=== PATIENT | female | born 2000 | race Caucasian/White ===

== ENCOUNTER 2020-01-18 18:23 | Emergency (ER) | payer BC, SELFPAY ==
[2020-01-18 18:46] VITALS: BP 123/75; PULSE 133; RESP 20; TEMP 38.1; O2SAT 100
--- NOTE | 2020-01-18 19:05 | ED.GENADULT ---
HPI - General Adult General Chief complaint: Skin/Abscess/Foreign Body Stated complaint: possible cyst Time Seen by Provider: 01/18/20 19:05 Source: patient and RN notes reviewed Mode of arrival: ambulatory Limitations: no limitations History of Present Illness HPI narrative: 19-year-old female presents with complaints of redness, tenderness, and swelling between vagina and rectum for the past 3 days. Sitting in bathtub and Ibuprofen (600mg), last this morning at approximately 09:00 with no relief. Area seem to increase throughout the day and decrease in size at night per Ernestina. Tender to touch. No drainage. History of skin abscess. No fever or chills. No abdominal pain, nausea, and vomiting. LMP 01/09/20-01/13/20. Remains active. The patient reports she have not been diagnosed with COVID-19. The patient reports she is not waiting for the results of a COVID-19 lab test. The patient reports she do not have fever, chills, weakness, fatigue, or myalgia. The patient reports she do not have a new or worsening cough or shortness of breath. Denies chest pain. The patient reports she do not have any rhinorrhea, congestion, sore throat, and diarrhea. Tolerating po intake well. Denies recent traveling. Denies concerns for COVID-19 or exposures been home with limited outdoor exposure except for essential household needs and return home. At this time, patient is not suspected of having COVID-19. Some parts of this dictation were generated by voice recognition software and may contain typographical and/or grammatical inaccuracies. Related Data Allergies Allergy/AdvReac Type Severity Reaction Status Date / Time Sulfa (Sulfonamide Allergy Unknown Verified 01/18/20 18:46 Antibiotics) Review of Systems Review of Systems: Narrative: CONSTITUTIONAL: Denies fever, chills, sweats. EYES: Denies visual changes, redness, discharge. ENT: Denies rhinorrhea, congestion, sore throat, otalgia. CARDIOVASCULAR: Denies chest pain, palpitations, edema. RESPIRATORY: Denies dyspnea, wheezing, cough. GASTROINTESTINAL: Denies abdominal pain, nausea, vomiting, diarrhea. GENITOURINARY: Denies dysuria, hematuria, abnormal discharge. SKIN: Denies rash or itching. Comomplains of redness, tenderness, and swelling between vagina and rectum. Denies drainage. MUSCULOSKELETAL: Denies acute back pain, joint pain, or myalgia. NEUROLOGIC: Denies numbness or focal weakness. PSYCHIATRIC: Denies anxiety or depression. All systems reviewed & are unremarkable except as noted in HPI and below. COUNT INCLUDES [facility] Past Medical History Medical History (Updated 01/23/20 @ 00:00 by Nika Levi) Abscess delivery delivered Surgical History Surgical History (Updated 01/18/20 @ 19:28 by MARIA ALEJANDRA Juarez) H/O section X1-2019 Family History Family History (Updated 01/18/20 @ 19:29 by MARIA ALEJANDRA Juarez) Father Hypertension Mother Alive and well Social History Social History (Updated 01/18/20 @ 19:30 by MARIA ALEJANDRA Juarez) Smoking status: Never smoker Second hand tobacco smoke exposure: No Substance use: never Living arrangements: with family Occupation/Education: unemployed Gender identity (if verbalized by the patient): Female Sexual Orientation (if Verbalized by the Patient): Straight or Heterosexual Comments At time of signature, agree with nurse past medical, surgical, social, and family history. There is relevant patient's past medical history pertinent to the presenting complaint, no relevant family history pertinent to the presenting complaint. Exam Narrative: Exam Narrative: GENERAL: This is a well-nourished, well-developed patient, in no apparent distress. Talking in full sentences without deficit and ambulate with slow steady gait without dyspnea. HEAD: normocephalic, atraumatic. EYES: PERRL. Sclera clear/white. Vision is grossly intact. NECK: Neck supple, non-tender without lymphadenopathy, masses or
== END 2020-01-18 19:32 | disposition home or self-care (01) ==
PROVIDERS: Emergency Provider Nurse Practitioner Family; PCP Family Medicine
DX: N76.4 Abscess of vulva (principal)
CPT/HCPCS: 99203; G0463

== ENCOUNTER 2022-11-18 16:58 | Emergency (ER) | payer OTHER, SELFPAY ==
[2022-11-18 17:15] VITALS: BP 105/75; PULSE 126; RESP 16; TEMP 37.7; O2SAT 99
[2022-11-18 17:16] VITALS: BP 105/75; PULSE 126; RESP 16; TEMP 37.7; O2SAT 99
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
[2022-11-18 17:56] VITALS: PULSE 102
== END 2022-11-18 17:56 | disposition home or self-care (01) ==
PROVIDERS: Emergency Provider Nurse Practitioner
DX: M54.2 Cervicalgia (principal); M25.511 Pain in right shoulder
CPT/HCPCS: 99213; G0463

== ENCOUNTER 2023-01-16 11:26 | Emergency (ER) | payer MEDICAID, SELFPAY ==
[2023-01-16 11:37] VITALS: BP 135/90; PULSE 96; RESP 16; TEMP 37.7; O2SAT 100
[2023-01-16 11:39] VITALS: BP 135/90; PULSE 96; RESP 16; TEMP 37.7; O2SAT 100
--- NOTE | 2023-01-16 11:47 | ED.NAVMDI ---
HPI - Nausea/Vomiting/Diarrhea General Chief complaint: Nausea/Vomiting/Diarrhea Stated complaint: diarrhea,fever Time Seen by Provider: 01/16/23 11:47 Source: patient Mode of arrival: ambulatory Limitations: no limitations History of Present Illness HPI Narrative: 22 yo F presents with c/o diarrhea starting a 2am. States she has had approx. 30 episodes of diarrhea. going every 15 minutes . Denies blood in stool. No episodes of diarrhea while at [facility]. Pt well appearing. Ate gas station pizza, mcdonalds and tacos from a baby shower yesterday. Unsure if related to food she ate or viral. Reports mild bodyaches and low grade temp. approx. 6 wks . c/o imtermittent epigastric cramping and gurgling . Is able to eat and drink today. reports burning with urination but states i always have this . has painter airbrush appt in 2 wks. All systems reviewed and negative except as noted above. Related Data Home Medications Medication Instructions Recorded Confirmed [place] 01/16/23 Allergies Allergy/AdvReac Type Severity Reaction Status Date / Time Sulfa (Sulfonamide Allergy Rash Verified 01/16/23 11:38 Antibiotics) Review of Systems Review of Systems: CONSTITUTIONAL: Denies fever, chills, or sweats. EYES: Denies visual changes, redness, or discharge. ENT: Denies rhinorrhea, congestion, sore throat, or otalgia. CARDIOVASCULAR: Denies chest pain, palpitations, or edema. RESPIRATORY: Denies cough or dyspnea. GASTROINTESTINAL: Reports epigastric pain, diarrhea. Denies nausea, vomiting. GENITOURINARY: Denies dysuria or hematuria. SKIN: Denies rash or itching. MUSCULOSKELETAL: Denies back pain, joint pain, or myalgia. NEUROLOGIC: Denies headache, numbness, or weakness. PSYCHIATRIC: Denies anxiety or depression. All other systems reviewed are negative, except as documented in HPI. [facility] Past Medical History Medical History (Updated 01/16/23 @ 12:14 by Carlie Almanza NP) Abscess delivery delivered Surgical History Surgical History (Updated 01/18/20 @ 19:28 by MARIA ALEJANDRA Juarez) H/O section X1-2019 Family History Family History (Updated 01/18/20 @ 19:29 by MARIA ALEJANDRA Juarez) Father Hypertension Mother Alive and well Social History Social History (Updated 01/18/20 @ 19:30 by MARIA ALEJANDRA Juarez) Smoking status: Never smoker Second hand tobacco smoke exposure: No Substance use: never Living arrangements: with family Occupation/Education: unemployed Gender identity (if verbalized by the patient): Female Sexual Orientation (if Verbalized by the Patient): Straight or Heterosexual Comments At time of signature, agree with nursing past medical, surgical, social and family history. There is no relevant family history pertinent to the presenting complaint. Exam Narrative: GENERAL: This is a well-nourished, well-developed patient, in no apparent distress. HEAD: normocephalic, atraumatic. EYES: PERRL. Sclera clear/white. Vision is grossly intact. EARS: External ears normal NOSE: External nose normal NECK: Neck supple, non-tender without lymphadenopathy, masses or thyromegaly. CARDIOVASCULAR: Regular rate and rhythm without murmurs, gallops, or rubs. RESPIRATORY: Clear to auscultation. Breath sounds equal bilaterally. No wheezes, rales, or rhonchi. GASTROINTESTINAL: Abdomen soft, non-tender, nondistended. Bowel sounds are active. No hepato-splenomegaly, or palpable masses. No guarding. digestive noises heard/felt on palpation of epigastric palpation. SKIN: warm, Dry, intact with no suspicious lesions or rash, good texture and turgor. NEURO: awake, alert, and oriented to person, place and time. There were no obvious focal neurologic abnormalities. EXTREMITIES: No joint tenderness, effusion, or edema noted. Course Course Level of Care: [facility] Visit Vital Signs Vital signs: Vital Signs Temperature 37.
== END 2023-01-16 12:17 | disposition home or self-care (01) ==
PROVIDERS: Emergency Provider Nurse Practitioner Family; PCP Emergency Medicine
DX: R19.7 Diarrhea, unspecified (principal)
CPT/HCPCS: 81003; 87086; 99213; G0463

== ENCOUNTER 2023-01-16 13:10 | Emergency (ER) | payer SELFPAY ==
[2023-01-16 13:31] VITALS: BP 126/70; PULSE 100; RESP 16; TEMP 37.1; O2SAT 100
--- NOTE | 2023-01-16 15:18 | PC.NURSE ---
pt to supervisor front, states i feel just fine, and i have an ultrasound appointment scheduled for . i'm thirsty and hungry, and i'm just ready to go home. I'll come back if i feel bad again. pt advised to return if symptoms return or get worse. pt left out of department at [phone]
== END 2023-01-16 16:15 | disposition left against medical advice (07) ==
DX: O26.891 Other specified pregnancy related conditions, first trimester (principal); R19.7 Diarrhea, unspecified
CPT/HCPCS: 99199

== ENCOUNTER 2023-05-19 08:02 | Emergency (ER) | payer OTHER, SELFPAY ==
[2023-05-19 08:11] VITALS: BP 128/77; PULSE 124; RESP 18; TEMP 37.4; O2SAT 99
--- NOTE | 2023-05-19 08:31 | ED.URI ---
HPI - URI/Sore Throat General Chief Complaint: Fever Stated Complaint: Fever/Nausea Time Seen by Provider: 05/19/23 08:22 Source: patient and RN notes reviewed Mode of arrival: ambulatory Limitations: no limitations History of Present Illness HPI Narrative: Patient presents today complaining of fever up to 99.9, headache, nausea, fatigue, sore throat, congestion and rhinorrhea. Symptoms began last evening. Denies shortness of breath, chest pain, abdominal pain, vaginal bleeding or discharge. She currently rates her pain 6/10 and has been taking Tylenol with some relief. She is currently 23 weeks and is cared for at [facility]. She was briefly exposed to COVID 19 yesterday by her boss. Related Data Home Medications Medication Instructions Recorded Confirmed spring 01/16/23 Allergies Allergy/AdvReac Type Severity Reaction Status Date / Time Sulfa (Sulfonamide Allergy Rash Verified 05/19/23 08:11 Antibiotics) Review of Systems Review of Systems: CONSTITUTIONAL: Denies body aches, chills, or sweats.+ fever, fatigue EYES: Denies visual changes, redness, or discharge. ENT: Denies otalgia.+ sore throat, congestion, rhinorrhea CARDIOVASCULAR: Denies chest pain, palpitations, or edema. RESPIRATORY: Denies dyspnea.+ cough GASTROINTESTINAL: Denies abdominal pain, vomiting, or diarrhea.+ nausea GENITOURINARY: Denies dysuria or hematuria. SKIN: Denies rash, itching, or wounds. MUSCULOSKELETAL: Denies back pain, joint pain, or myalgia. NEUROLOGIC: Denies numbness, tingling, or weakness.+ headache PSYCH: Denies depression or anxiety. [facility] Past Medical History Medical History Abscess delivery delivered Surgical History Surgical History H/O section X1-2019 Family History Family History Father Hypertension Mother Alive and well Social History Social History Smoking status: Never smoker Second hand tobacco smoke exposure: No Substance use: never Living arrangements: with family Occupation/Education: unemployed Gender identity (if verbalized by the patient): Female Sexual Orientation (if Verbalized by the Patient): Straight or Heterosexual Comments At time of signature, I have reviewed and agree with nursing past medical, surgical, social and family history unless otherwise noted. Please see nursing chart for further information. There is no relevant family history pertinent to the presenting complaint Exam Narrative: GENERAL: Mildly ill-appearing, well-nourished, and in no acute distress. HEAD: Normocephalic, atraumatic. EYES: EOMI. No redness or drainage. Conjunctivae normal. ENT: Mucous membranes pink and moist. Nares congestive. No rhinorrhea. TMs normal bilaterally. Throat erythematous and mildly edematous. No exudate. Uvula midline. NECK: Normal AROM. Supple. No lymphadenopathy. CHEST: No respiratory distress. Clear to auscultation. HEART: Regular rhythm. + tachycardia. No murmur appreciated. Normal peripheral pulses. ABDOMEN: Soft, nontender, gravid abdomen, normal active bowel sounds. EXTREMITIES: Normal range of motion. No edema. SKIN: Warm, dry, no rash. Capillary refill normal. Normal skin turgor. NEURO: No focal deficits. Alert and oriented x3. Gait steady. PSYCH: Normal affect. No signs of depression or anxiety. Course Course Level of Care: Express [facility] Visit Vital Signs Vital signs: Vital Signs Temperature 99.4 F 05/19/23 08:11 Pulse Rate 124 H 05/19/23 08:11 Respiratory Rate 18 05/19/23 08:11 Blood Pressure 128/77 05/19/23 08:11 Pulse Oximetry 99 05/19/23 08:11 Oxygen Delivery Room Air 05/19/23 08:11 Temperature 99.4 F 05/19
== END 2023-05-19 08:47 | disposition home or self-care (01) ==
PROVIDERS: Emergency Provider Nurse Practitioner
DX: O99.512 Diseases of the respiratory system complicating pregnancy, second trimester (principal); Z3A.23 23 weeks gestation of pregnancy; B34.9 Viral infection, unspecified; Z20.822 Contact with and (suspected) exposure to COVID-19
CPT/HCPCS: 87081; 87426; 87880; 99213; C9803; G0463

== ENCOUNTER 2023-06-06 10:53 | Emergency (ER) | payer OTHER, SELFPAY ==
[2023-06-06 10:59] VITALS: BP 112/65; PULSE 106; RESP 16; TEMP 36.2; O2SAT 99
[2023-06-06 11:00] VITALS: BP 112/65; PULSE 106; RESP 16; TEMP 36.2; O2SAT 99
--- NOTE | 2023-06-06 11:14 | ED.URI ---
HPI - URI/Sore Throat General Chief Complaint: Upper Respiratory Infection Stated Complaint: Sore Throat History of Present Illness HPI Narrative: 22 y/o female presented for c/o nasal congestion, cough, and sore throat. onset yesterday. Endorses pain radiates to the ears with swallow. also reports cough is productive of yellow mucus. Denies difficulty maintaining secretions or decreased appetite. Denies nausea, vomiting, diarrhea, fevers or chills. Took cough drops and throat spray for symptoms. Denies known sick contacts. Related Data Home Medications Medication Instructions Recorded Confirmed No Home Medications 06/06/23 06/06/23 Allergies Allergy/AdvReac Type Severity Reaction Status Date / Time Sulfa (Sulfonamide Allergy Rash Verified 06/06/23 10:59 Antibiotics) Review of Systems Review of Systems: CONSTITUTIONAL: Denies body aches, fever, chills, or sweats. EYES: Denies visual changes, redness, or discharge. ENT: reports rhinorrhea, sore throat, otalgia. CARDIOVASCULAR: Denies chest pain, palpitations, or edema. RESPIRATORY: Denies dyspnea. GASTROINTESTINAL: Denies abdominal pain, nausea, vomiting, or diarrhea. SKIN: Denies rash, itching, or wounds. MUSCULOSKELETAL: Denies back pain, joint pain, or myalgia. NEUROLOGIC: Denies headache PMFSH Past Medical History Medical History Abscess delivery delivered Surgical History Surgical History H/O section X1-2019 Family History Family History Father Hypertension Mother Alive and well Social History Social History Smoking status: Never smoker Second hand tobacco smoke exposure: No Substance use: never Living arrangements: with family Occupation/Education: unemployed Gender identity (if verbalized by the patient): Female Sexual Orientation (if Verbalized by the Patient): Straight or Heterosexual Exam Narrative: GENERAL: well-appearing, no acute distress. EYES: conjunctivae clear ENT: Mucous membranes moist. TMs pearly heni with normal light reflex bilaterally; no tragal tenderness. Oropharynx not erythematous without lesions. Tonsils enlarged 1+ without exudate. No drooling, no hoarseness, no trismus, uvula midline. No tripod positioning, hot potato voice, or soft palate swelling. NECK: Supple. No lymphadenopathy CHEST: Clear to auscultation, breath sounds equal. No respiratory distress, speaks in full sentences. HEART: Regular rate and rhythm. No murmur heard. ABD: Gravid SKIN: Warm, dry, no rash. NEURO: Alert and oriented x3. Course Course Emergency Course: Patient is aware of diagnosis, understands and agrees to treatment plan. Anticipatory guidance given. Patient agrees to follow-up as directed and is aware of reasons to seek care at the emergency department. Portions of this record may have been created with voice recognition software Level of Care: [facility] Visit Vital Signs Vital signs: Vital Signs Temperature 97.2 F L 06/06/23 10:59 Pulse Rate 106 H 06/06/23 10:59 Respiratory Rate 16 06/06/23 10:59 Blood Pressure 112/65 06/06/23 10:59 Pulse Oximetry 99 06/06/23 10:59 Oxygen Delivery Room Air 06/06/23 10:59 Temperature 97.2 F L 06/06/23 11:00 Pulse Rate 106 H 06/06/23 11:00 Respiratory Rate 16 06/06/23 11:00 Blood Pressure 112/65 06/06/23 11:00 Pulse Oximetry 99 06/06/23 11:00 Oxygen Delivery Room Air 06/06/23 11:00 MDM - URI/Sore Throat MDM Narrative Medical decision making narrative: Negative strep result reviewed with pt. Advise supportive treatments. Patient is appropriate for outpatient treatment and follow-up. Differential Diagnosis Differential diagnosis: Likely upper respirator
== END 2023-06-06 11:23 | disposition home or self-care (01) ==
PROVIDERS: Emergency Provider Nurse Practitioner Family
DX: J06.9 Acute upper respiratory infection, unspecified (principal)
CPT/HCPCS: 87081; 87880; 99213; G0463

== ENCOUNTER 2024-08-08 14:54 | Emergency (ER) | payer OTHER, SELFPAY ==
--- NOTE | 2024-08-08 15:02 | ED_ITS ---
HPI - Female Genitourinary General Chief complaint: Urogenital-Female Stated complaint: Vaginal Problems Time Seen by Provider: 08/08/24 14:58 Source: patient Mode of arrival: ambulatory Limitations: no limitations History of Present Illness HPI Narrative: Patient is a 23-year-old female who presents with vaginal and perianal itching. Denies any chance of STI. Is concern for used infection. States every time she goes to the bathroom in his diarrhea due to having IBS. Does report having redness and inflammation to skin. Denies any burning with urination, urgency, frequency, low back pain, fever, chills, nausea, vomiting, diarrhea. Related Data Allergies Allergy/AdvReac Type Severity Reaction Status Date / Time Sulfa (Sulfonamide Allergy Rash Verified 06/06/23 10:59 Antibiotics) Review of Systems Review of Systems: All systems reviewed & are unremarkable except as noted in HPI and below Constitutional: Constitutional: Denies body ache(s), Denies chills, Denies fatigue, Denies fever(s), Denies headache(s), Denies malaise and Denies weakness Eyes: Eyes: Denies blurry vision, Denies irritation and Denies loss of vision ENT: Denies otalgia, Denies headache(s), Denies nasal discharge, Denies sinus pain and Denies sore throat Cardiovascular: Cardiovascular: Denies chest pain, Denies irregular heart rhythm and Denies dyspnea Respiratory: Respiratory: Denies dyspnea Gastrointestinal: Gastrointestinal: Denies abdominal pain, Denies melena, Denies hematochezia, Denies diarrhea, Denies nausea and Denies vomiting Genitourinary: Genitourinary: Reports vaginal pruritus Musculoskeletal: Musculoskeletal: Denies back pain, Denies myalgias and Denies arthralgias Integumentary/Breasts: Skin/Breast: Denies pruritus and Denies rash Neurologic: Denies headache(s), Denies loss of vision and Denies weakness Psychiatric: Psychiatric: Reports no additional psychiatric complaints Endocrine: Endocrine: Denies fatigue PMFSH Past Medical History Medical History Abscess delivery delivered Surgical History Surgical History H/O section X1-2019 Family History Family History Father Hypertension Mother Alive and well Social History Social History Smoking status: Never smoker Second hand tobacco smoke exposure: No Substance use: never Living arrangements: with family Occupation/Education: unemployed Gender identity (if verbalized by the patient): Female Sexual Orientation (if Verbalized by the Patient): Straight or Heterosexual Comments At time of signature, agree with nursing past medical, surgical, social and family history. There is no relevant family history pertinent to the presenting complaint. Exam Const: General: cooperative, healthy appearing, comfortable, no acute distress and well nourished Nutritional Appearance: well nourished Orientation/consciousness: patient oriented x3 Limitations: no limitations HENMT: Head: normal to inspection, normocephalic and atraumatic Ears: hearing grossly normal bilaterally and external ears normal Face/Nose/Sinus: Normal external nose present, normal facial exam and face symmetric Face and sinus: normal facial exam and face symmetric Mouth: Yes lip normal Eyes: General: appearance normal, both eyes and all related structures Alignment and Position: alignment normal and position normal Periorbital: periorbital findings normal Eyelids: eyelids normal Pupils: Equal, round and reactive pupils present EOM: EOMs intact bilaterally Neck: Neck: normal visual inspection, full ROM and supple Chest: Chest palpation & inspection: normal inspection of the chest Resp: Effort & Inspection: normal respiratory effort and able to speak in complete sentences Auscultation: clear to auscultation bilaterally Cardio: Rate: regular rate Rhythm: regular rhythm Heart sounds: S1 normal heart sound present and S2 normal heart sound present GI: Inspection: normal to inspection : General: Yes no CVA tenderness Other: Exam deferred by patient Skin: General skin exam: normal color and no rashes or lesions noted Neuro: General: patient oriented x3 and moves all extremities Cranial nerves: Yes Equal, round and reactive pupils present Speech: normal speech Gait exam (Neuro): Normal gait present Extrem: General: normal to inspection, full ROM and no edema Psych: Appearance: grossly normal and well kempt Mental Status: mental status grossly normal Speech and movement: Normal speech and movement present Affect: normal affect Attitude: cooperative Thought process: Normal thought process present Course Course Emergency Course: Patient is aware of diagnosis, understands and agrees to treatment plan. Anticipatory guidance given. Patient agrees to follow-up as directed and is aware of reasons to seek care at the emergency department. Portions of this record may have been created with voice recognition software Level of Care: Express Care Visit Vital Signs Vital signs: Vital Signs Temperature 36.6 C 08/08/24 15:15 Pulse Rate 80 08/08/24 15:15 Respiratory Rate 15 08/08/24 15:15 Blood Pressure 106/64 08/08/24 15:15 Pulse Oximetry 100 08/08/24 15:15 Oxygen Delivery Room Air 08/08/24 15:15 Temperature 36.6 C 08/08/24 15:15 Pulse Rate 80 08/08/24 15:15 Respiratory Rate 15 08/08/24 15:15 Blood Pressure 106/64 08/08/24 15:15 Pulse Oximetry 100 08/08/24 15:15 Oxygen Delivery Room Air 08/08/24 15:15 Reviewed MDM - Female Genitourinary MDM Narrative Medical decision making narrative: Pt well hydrated appearing, in no respiratory distress, hemodynamically stable. Recommend supportive care. The patient is stable at time of discharge the clinical impression was discussed and the patient was given the opportunity to ask questions, which were addressed as completely as possible given the information available at present. Anticipatory guidance and return to care precautions were discussed and the importance of primary care follow-up was stressed and encouraged. The patient voiced understanding of the plan, indications to return, and the need for follow-up. Exam findings show no acute concerns or changes Patient is appropriate for outpatient treatment and follow-up. Differential Diagnosis Differential diagnosis: Likely urinary tract infection, bacterial vaginosis, cervicitis, vaginitis and other (Vaginal yeast infection) Medical Records Attestation: I reviewed the patient's medical records. Lab Data Attestation: I reviewed the patient's lab results. Labs: Lab Results 08/08/24 Range/Units 15:17 POC Urine Color Yellow POC Urine Clarity Clear POC Urine pH 6.0 POC Ur Specif [place] 1.030 POC Urine Protein Negative (Negative) POC Ur Glucose (UA) Negative (Negative) POC Urine Ketones Negative (Negative) POC Urine Blood Negative (Negative) POC Urine Nitrite Negative (Negative) POC Urine Bilirubin Negative (Negative) POC Urine Urobilinogen 0.2 POC U Leukocyte Esteras Negative (Negative) Discharge Plan Discharge Clinical Impression: Vaginal yeast infection Patient Disposition: Home, Self-Care Condition: Stable Instructions: Yeast Infection (ED) Additional Instructions: Take 1 pill today and in 3 days take additional pill. Do not use any scented soaps, tampons or pads. Make sure to always urinate after sex. Use non scented, non flavored condoms. Do not sit and bath with scented soaps or oils. Where cotton underwear and change underwear after exercise. Patient Language: Stateless Prescriptions: New fluconazole 150 mg tablet 150 mg PO ONCE Qty: 2 0RF Rx Instructions: as a single dose after antibiotics are complete. If symptoms persist, take second dose 3 days later. Follow-up/Referrals: PHYSICIAN,MONUMENT[facility] [Primary Care Provider] - Eliu Mcleod MD [Physician] - 3 Days (Establish care for) Stand Alone Forms: Work/School Release IP Time of Disposition: 15:39
[2024-08-08 15:15] VITALS: BP 106/64; PULSE 80; RESP 15; TEMP 36.6; O2SAT 100
[2024-08-08 15:19] LABS: EDUAAPPEAR Clear; EDUABILI Negative (Negative); EDUABLOOD Negative (Negative); EDUACOLOR1 Yellow; EDUAGLUCOSE Negative (Negative); EDUAKETONE Negative (Negative); EDUALEUKO Negative (Negative); EDUANITRATE Negative (Negative); EDUAPROTEIN Negative (Negative); EDUAUROBILI 0.2
== END 2024-08-08 15:45 | disposition home or self-care (01) ==
PROVIDERS: Emergency Provider Nurse Practitioner Family
DX: B37.31 Acute candidiasis of vulva and vagina (principal)
CPT/HCPCS: 81003; 99213; G0463

== ENCOUNTER 2024-08-15 02:46 | Emergency (ER) | payer OTHER, SELFPAY ==
[2024-08-15 02:50] VITALS: BP 119/69; PULSE 101; RESP 16; TEMP 36.8; O2SAT 99
--- OUTSIDE RECORDS SUMMARY | 2024-08-15 02:50 | XMS_ITS | Clinical Summary ---
Author Organization [facility] [id number] [facility] Address [address] [facility] [place] [address] Care Team Providers Care Tobacco Sizer Name Role Phone No, Physician Primary Care Provider Allergies Active Allergy Reactions Criticality Noted Date Comments Sulfa (Sulfonamide Antibiotics) Rash Medium 04/20 Medications vit 15-[id number]-dh a 27mg iron- 800 mcg-250 mg capsule Take by mouth Active acetaminophen (TYLENOL) 325 mg tablet Take 2 tablets (650 mg total) by mouth every 6 (six) hours as needed for pain 60 tablet 4 Active Additional Information Patient not taking.Reported on 10/12/2023 ibuprofen (ADVIL,MOTRIN) 600 mg tabletIndication s:Cramps Take 1 tablet (600 mg total) by mouth every 6 (six) hours as needed for pain 60 tablet 4 Active Additional Information Patient not taking.Reported on 10/12/2023 betamethasone dipropionate (DIPROSONE) 0.05 % ointment Apply topically 3 (three) times a day 45 g 4 Active Additional Information Patient not taking.Reported on 01/25/2024 mupirocin (BACTROBAN) 2 % ointment Apply topically 3 (three) times a day 30 g 1 4 Active miconazole 2 % cream Apply topically 2 (two) times a day Apply to affect area of nipple BID. 28.35 g 4 Active fluconazole (DIFLUCAN) 150 mg tablet One tablet PO q 3 days for 3 total doses. 3 tablet 4 Active clotrimazole 1 % cream Apply to affected area 2 times daily 15 g 5 Active fluconazole (DIFLUCAN) 150 mg tablet Take 1 tablet (150 mg total) by mouth as needed (If needed, take on 08/12. If additional dose as needed, take 1 more dose on 08/15) 2 tablet 5 Active metroNIDAZOLE (FLAGYL) 500 mg tablet Take 1 tablet (500 mg total) by mouth 2 (two) times a day for 7 days 13 tablet 5 08/16/19 25 Active Active Problems Problem Noted Date Diagnosed Date 38 weeks gestation of 09/02/2023 History of 08/30/2023 Sterilization 08/30/2023 Supervision of other normal , antepartu m 03/07/2023 BMI less than 19,adult 08/19/2020 Assessment & Plan (02/01/2021 8:11 AM CDT): Weight/BMI is in healthy range. Continue healthy lifestyle to maintain. Assessment & Plan (01/18/2021 7:58 AM CDT): Weight/BMI is in healthy range. Continue healthy lifestyle to maintain. Assessment & Plan (09/17/2020 10:46 AM CDT): Weight/BMI is in healthy range. Continue healthy lifestyle to maintain. Assessment & Plan (08/19/2020 1:28 PM LOCK INSTALLER): Weight/BMI is in healthy range. Continue healthy lifestyle to maintain. Irregular menses 08/19/2020 Assessment & Plan (02/01/2021 9:17 AM CDT): Continue with apri at this time Assessment & Plan (08/19/2020 3:18 PM LOCK INSTALLER): Patient advised to not smoke as smoking when taking ocp can increase risk for blood clots. Patient advised to take ocp at same time each day and start ocp the day after menses finishes. Patient reminded to use back up prevention the first two months after starting ocp. Patient reminded that ocp does not prevent against STDs. Patient reminded that if taking other medications, such as antibiotics or medications for anxiety or depression, could interact with ocp and increase risk for . Will also evaluate thyroid - will notify of results as available Episode of recurrent major depressive disorder 0 08/19/2020 Assessment & Plan (02/01/2021 9:17 AM CDT): Stable, continue meds same at this time Assessment & Plan (09/17/2020 11:36 AM CDT): Continue medication same at this time. Encouraged utilizing support system, monitoring for obtrusive/anxious thoughts and refuting to prevent overthinking. Reminded her not to stop zoloft abruptly. Assessment & Plan (08/19/2020 3:19 PM LOCK INSTALLER): Will start on zoloft every day. She makes pact to report to er if having s/h ideations. Resolved Problems Problem Noted Date Diagnosed Date Resolved Date (vaginal after ) 09/03/2023 01/25/2024 Overview (09/04/2023): 09/03/2023, PPD #1 s/p (Gaurav) # ID: Afebrile. No signs/symptoms of infection. # Heme: EBL 200 mL. No symptoms acute blood loss anemia. # CV/Pulm: Vital signs stable, within normal limits. # GI/: Tolerating PO. Voiding spontaneously. # Pain: Controlled with motrin/tylenol. # MOC: Planning tubal ligation, patient NPO for procedure this AM . # MOF: . # Post DVT prophylaxis: SCDs # Disposition: Continue routine care. 09/04/2023 PPD #2 (CZ) VSS, afebrile O+, Rubella Immune Hgb: 11.7>10.8 QBL 205 Ambulating, voiding, and tolerating PO, Lochia WNL Normal exam MOF: Breast MOC: Tubal VTE: frequent ambulation Dispo: Discharge teaching provided including PPD/PPA, pre-e, and bleeding/clotting precautions. Follow-up in [address] Nolasco PROM (premature rupture of membranes) 09/02/2023 01/25/2024 Overview (09/02/2023): 09/02/2023, 0930 Gaurav --patient presented to [facility] with complaints of LOF since 0600 am. ROM plus positive. --cervix 2/60/-2 on my exam --prior LTCS x 1 for arrest at 6 cm, currently desiring attempt at TOLAC. Aware of risk of rupture <1%. --cook catheter placed with 80 mL of fluid in uterine balloon and placed on traction. Will start OT. --FWB reassuring --plans epidural when uncomfortable. --O+/I/-/-, HIV and RPR NR --H/H 11.7/33.9, plts 210K (09/01) --GBS neg --contraception: desires pp tubal post delivery or via C/S if requiring. 09/02/2023, 1217 pm, Gaurav --patient more comfortable, recently got epidural --CC out, bloody show present. --cervix very soft and stretchy, 6/60/-2 --OT at 4 mU/min --fetus overall reassuring, Cat 2 due to occasional variables. 09/02/2023, 1414, Gaurav --patient needing re-bolusing of epidural, was getting uncomfortable. --cervix 680/-1 --IUPC placed for OT titration --fetus reassuring 09/02/2023, 1999Gaurav --cervix now C/+2 --recently received epidural re-dose --fetus overall reassuring --will plan to start pushing soon Unwanted fertility 09/02/2023 Physical exam, annual 01/18/20212022 Assessment & Plan (01/18/2021 8:50 AM CDT): Patient advised to call in 7 days if she has not been notified of PAP results. Patient reminded that she may spot blood vaginally and mildly cramp after this procedure. Patient advised to avoid douching, vaginal medications, and intercourse for 24h prior to her annual PAP. Nipple discharge 01/18/2021 03/30/2022 Assessment & Plan (02/01/2021 9:17 AM CDT): Will refer to endo and breast specialist for further evaluation and treatment Assessment & Plan (01/18/2021 8:50 AM CDT): Will evaluate further with labs Encounter to establish care 08/19/2020 05/10/2021 Assessment & Plan (08/19/2020 3:18 PM LOCK INSTALLER): Retrieve records from previous pcp Will make next appt a well woman exam control counseling 08/19/2020 Assessment & Plan (08/19/2020 3:18 PM LOCK INSTALLER): Patient advised to not smoke as smoking when taking ocp can increase risk for blood clots. Patient advised to take ocp at same time each day and start ocp the day after menses finishes. Patient reminded to use back up prevention the first two months after starting ocp. Patient reminded that ocp does not prevent against STDs. Patient reminded that if taking other medications, such as antibiotics or medications for anxiety or depression, could interact with ocp and increase risk for . delivery delivered 12/12/2018 03/30/2022 Overview (12/15/2018): # ID: Diagnosed with Chorioamnionitis in labor. S/p 24hr antibiotics (amp, gent and clinda). Afebrile since. Fundus non-tender. Incision C/D/I beneath dermabond. CTM closely # Heme: EBL 900 mL. Pre-Op Hgb 9.8->10.4. Tachycardic yesterday, improved to 80's-90s overnight. #CV/Pulm: Diagnosed with gHTN in setting of multiple mild range blood pressures after delivery. BPs within normal to mild range yesterday. CMP significant for Cr 0.88. Patient remains asymptomatic today. Will plan for one week BP check. # GI/: Tolerating PO. Voiding spontaneously. # Pain: Controlled with above regimen. # Edema: Swelling continues to decrease. Pt ambulating well. # Post DVT prophylaxis: Patient has the following moderate risk factors: None. Her post prophylaxis plan is SCDs and early ambulation # MOC: Desires IUD at visit # MOF: Formula feeding # Disposition: Continue routine postoperative care Encounter for elective induction of labor 12/09/2018 05/10/2021 Overview (12/11/2018): 1. Elective Induction of Labor: Consents signed and placed in chart. Induction of labor with low dose OT. S/p CC. SVE unchanged for several hours. Ruba regularly q1-2 min. OT kept at 16 mU/min for tachysystole. FHT cat I. Just placed IUPC in order to further assess strength of contractions, allow for further upward titration of OT 2. Chorioamnionitis: On Amp/gent. Temp downtrended from 100.4 to 99.6. tachycardia resolved. 3. Elevated BP x 1: UPC 0.14, CBC/CMP wnl on 12/05. Admission labs: UPC 0.27, CBC/CMP wnl. BP normal, CTM. 4. FWB: Continuous monitoring. tracing category I after 5. ID: HIV negative. GBS negative. Membrane Status: intact 6. Indications for UDS: none 7. MOF: Undecided on feeding method. 8. MOC: Mirena to be placed at 6 weeks 9. Pain management: Epidural placed. 10. Post DVT prophylaxis: Patient has the following moderate risk factors: None. Her post prophylaxis plan is SCDs and early ambulation Elevated BP without diagnosis of hypertension 12/07/1903/30/2022 High blood pressure affectin g in third trimester, antepartum 12/05/2018 03/30/2022 Overview (12/05/2018): - [facility] VISIT 12/05/2018: elevated BP in clinic - without neuro symptoms - preE labs unremarkable - VSS - reactive NST - patient for IOL on Monday - preE precautions given - DW Dr. Stone Uterine size-date discrepanc y in third trimester 08/29/2018 03/30/2022 Overview (09/26/2018): Growth US ordered for ~28 weeks. 09/19/18: EFW 1,012g 13%, vtx, nl BENY. OB US summary 07/26/2018 03/30/2022 Overview (07/26/2018): 07/25/18 diana US: EFW 281g 16%, ant placenta, no previa. Nl BENY, nl anatomy, 3vc, nl insertion. Supervision of normal first teen 05/16/2018 03/30/2022 Overview (11/19/2018): Initial Labs: Lab Results Component Value Date ABORH O Positive 05/29/2018 IDCOOMB Negative 05/29/2018 [id number] Nonreactive 09/28/2018 LABRPR Nonreactive 05/29/2018 RUBELIGG Positive (A) 05/29/2018 HEPBSAG Nonreactive 05/29/2018 Lab Results Component Value Date WBC 9.1 09/28/2018 HGB 11.5 (L) 09/28/2018 HCT 35.4 (L) 09/28/2018 MCV 98.9 (H) 09/28/2018 LABPLAT 224 09/28/2018 Midtrimester Labs Lab Results Component Value Date [id number] 09/28/2018 Lab Results Component Value Date HGB 11.5 (L) 09/28/2018 LABPLAT 224 09/28/2018 GBS: Lab Results Component Value Date MICROBIOLOGY Final Report: Negative 11/16/2018 Aneuploidy screening: low risk XY NIPT. rgs In parenting classes at school. Will graduate HS Jun 2018. Tasia Ackerman 12/09 @ 8pm if no spontaneous labor prior Sprain of ankle 03/29/2011 03/04/2018 Encounters Date Type Department Care Team Description 08/09/2024 11:45 AM LOCK INSTALLER - 08/09/2024 1:58 PM [facility] Emergency [facility] Emergency Department [address] [place] [id number] Bacterial vaginosis (Primary Dx); Rash Discharge Disposition: Discharge to home or self care from Last 3 Months Immunizations Immunization Administration Dates Next Due HPV, Quadrivalent 02/24/2017,03/03/2015 Influenza, Quadrivalent, Spl it, Preservative Free, Intramuscular 05/29/2018 Influenza, Unspecified 08/19/2020(Deferr ed: Patient Refused),03/26/2020(Deferred: Patient Refused) Meningococcal MCV4P (Menactra) 02/24/2017 Tdap 06/29/2023,09/28/2018 Varicella 02/24/2017 Surgical History Surgery Date Site/Laterality Comments SECTION Medical History Medical History Date Comments Depression no meds past 2 y ears Anxiety Family History Medical History Relation Name Comments Hypertension Father Lung cancer Maternal Grandfather Cancer Maternal Grandmother Stroke Paternal Grandfather No Known Problems Sister 2 No Known Problems Son Breast cancer Neg Hx Colon cancer Neg Hx Ovarian cancer Neg Hx Uterine cancer Neg Hx Relation Name Status Comments Father Alive Maternal Grandfather Maternal Grandmother Mother Alive Paternal Grandfather Sister 2 Alive Son Alive Social History Tobacco Use Types Packs/Day Years Used Date Smoking Tobacco: Never Smokeless Tobacco: Never Tobacco Cessation:Counseling Given: Not Answered Alcohol Use Standard Drinks/Week Comments Not Currently 0 (1 standard drink = 0.6 oz pur e alcohol) AUDIT-C Answer Date Recorded Frequency of Alcohol Consumption Not on file 03/30/2022 Average Number of Drinks Not on file 022 Q3: How often do you have si x or more drinks on one occasion? Never 03/30/2022 PHQ-2 Answer Date Recorded PHQ-2 Total Score (If total score is 3 or more points, staff should administer the PHQ-9) 1 03/30/2022 [place] Depression Scale Answer Date Recorded [place] Depression Scale Total 5 10/12/2023 The thought of harming myself has occurred to me . Never 10/12/2023 Personal Safety Answer Date Recorded Have you ever been in or are you currently in a harmful physical or emotional relationship or is someone making you feel afraid or unsafe? Denies 08/09/2024 Comments No Sex and Gender Information Value Date Recorded Sex Assigned at Not on file Legal Sex Female 10:37 PM LOCK INSTALLER Gender Identity Female 03/09/2022 12:32 PM CDT Sexual Orientation Bisexual 03/09/2022 12 :32 PM CDT Sexual Orientation Something else 03/09/2022 12 :32 PM CDT Occupation Industry Job Start Date Job End Date student Not on file Not on file Not on file Obstetrics History Para Term AB IAB SAB Ectopic Multiple Livin g Live Births 2 2 2 0 0 2 2 Date Outcome GA Total Labor Labor/2nd/3rd Weight Sex Type Anes PTL Hallie A1 A5 Name Clin 2018 Term 39w 5d 0h 02m 0h 02m 3.58 kg (7 lb 14.3 oz) M CS-LT ranv Combin ed Spinal /Epidu ral N Livin g 8 9 OLIVA CESPEDES Kerit h Lucia, MD Complications:Other (Comment ) Delivery Location:[facility] Main C ampus ([facility] 58LD) 2023 Term 38w 1d 14h 08m 13h 45m/0h 21m/0h 02m 3.28 kg (7 lb 3.7 oz) M Epidur al N Livin g 8 9 Tera gómez, Janett Gaspar MD Delivery Location:[facility] Main C ampus ([facility]) Comments Last Filed Vital Signs Vital Sign Reading Time Taken Comments Blood Pressure 132/88 08/09/2024 11:38 AM LOCK INSTALLER Pulse 128 08/09/2024 11:38 AM LOCK INSTALLER Temperature 37.1 C (98.8 F) 08/09/2024 11:38 AM LOCK INSTALLER Respiratory Rate 20 08/09/2024 11:38 AM LOCK INSTALLER Oxygen Saturation 100% 08/09/2024 11:38 AM LOCK INSTALLER Inhaled Oxygen Concentration - - Weight 60.5 kg (133 lb 6.1 oz) 08/09/2024 11:38 AM LOCK INSTALLER Height 172.7 cm (5' 8 ) 08/09/2024 11:38 AM LOCK INSTALLER Body Mass Index 20.28 08/09/2024 11:38 AM LOCK INSTALLER Plan of Treatment Health Maintenance Due Date Last Done Comments Meningococcal B Vaccine (1 of 2 - Standard) 2016 Varicella Vaccines (2 of 2 - 13+ 2-dose series) 03/24/2017 02/24/2017 Hepatitis B Screening 2018 Influenza Vaccine (#1) 2024 05/29/2018 Depression Screening 10/11/2024 10/12/2023, 03/30/2022, 02/01/2021, Additional history exists Cervical Cancer Screening 01/24/2025 01/25/2024, 07/2020 Regular Well Visit/Exam 18-64 01/24/2025 01/25/2024, 03/30/2022, 01/18/2021 Chlamydia and Gonorrhea (GC/CT) Screening 08/09/2025 08/09/2024, 07/03/2023, 03/07/2023 DTaP/Tdap/Td Vaccine (3 - Td or Tdap) 06/29/2033 06/29/2023, 09/28/2018 HPV Vaccines Completed 02/24/2017, 03/03/2015 Hepatitis C Screening Completed 03/07/2023 Pneumococcal vaccine <65 Aged Out No longer eligible based on patient's age to complete this topic Procedures Procedure Name Priority Date/Time Associated Diagnosis Comments POCT HCG, URINE Routine 08/09/2024 12:30 PM LOCK INSTALLER URINALYSIS AND REFLEX TO MICROSCOPIC AND CULTURE STAT 08/09/2024 11:54 AM LOCK INSTALLER N. GONORRHOEAE/C. TRACHOMATIS AMPLIFICATION STAT 08/09/2024 11:54 AM LOCK INSTALLER VAGINITIS PANEL STAT 08/09/2024 11:53 AM LOCK INSTALLER PAP WITH REFLEX TO HIGH RISK HPV Routine 01/25/2024 10:31 AM CDT Well woman exam with routine gynecological exam HEPATITIS C ANTIBODY Routine 03/07/2023 10:07 AM CDT Encounter for supervision of other normal in first trimester from Last 3 Months or Most Recently Relevant to Health Maintenance Results * POCT hCG, urine (08/09/2024 12:30 PM LOCK INSTALLER) HCG, ur, POC Negative Negative Lot Number [id number] QC Backgroud Clear Acceptable QC Control Line Acceptable Urine 08/09/2024 12:3 0 PM LOCK INSTALLER [employer] POINT OF CARE TEST ORDERABLES Final Result * N. gonorrhoeae/C. trachomatis Amplification Urine (08/09/2024 11:54 AM LOCK INSTALLER) C. trachomatis Not Detected Not Detected Comment:Testing performed by : [address] [address] N. gonorrhoeae Not Detected Not Detected SOLE Comment: Interpretive Data This assay detects Chlamydia trachomatis and Neisseria gonorrhoeae by nucleic acid amplification testing (NAAT). This assay has been cleared by the [place] Food and Drug administration. The performance characteristics of this test have been verified by the [facility]. The performance characteristics of this test have not been evaluated in individuals less than 14 years of age. Current Interpretive Data last revised 2023. Testing performed by: [address] [address] Urine (None) 08/09/2024 11:5 4 AM LOCK INSTALLER 08/09/2024 11:58 AM LOCK INSTALLER Hi Feliz DO LAB MICROBIOLOGY - GENERAL ORD ERABLES Final Result SOEL [address] [facility] Department [place] [address] * Urinalysis reflex to microscopic and culture Urine (08/09/2024 11:54 AM LOCK INSTALLER) Color, ur Yellow Yellow Comment:Testing performed by : [address] [address] Clarity, ur Clear Clear SOLE Comment:Testing performed by : [address] [address] Specific gravity, ur 1.017 1.003 - 1.030 SOLE Comment:Testing performed by : [address] [address] pH, urine 6.5 SOLE Comment: Interpretive Data U rine pH is affected by diet, medications, systemic acid-base disturbances, and renal tubular function. pH may affect urinary stone formation. For example, urine pH below 6.0 may help reduce the tendency for calcium phosphate stones and pH greater than 6.0 may reduce the tendency for uric acid stone formation. Source: [facility] Macrotherapy Current Interpretive Data was last revised on 2017 Testing performed by: [address], [place]., [address] Protein, ur ql Negative Negative SOLE Comment:Testing performed by : [address], [place]., [address] Glucose, ur ql Negative Negative SOLE Comment:Testing performed by : [address], [place]., [address] Ketones, ur Negative Negative SOLE Comment:Testing performed by : [address], [place]., [address] Bilirubin, ur Negative Negative SOLE Comment:Testing performed by : [address], [place]., [address] Blood, ur Negative Negative SOLE Comment:Testing performed by : [address], [place]., [address] Urobilinogen, ur <2.0 <2.0 mg/dL SOLE Comment:Testing performed by : [address], [place]., [address] Nitrite, ur Negative Negative SOLE Comment:Testing performed by : [address], [place]., [address] Leukocyte esterase, ur Negative Negative SOLE Comment:Testing performed by : [address] [address] UA reflex comment Reflex conditions for microscopic UA and culture not met. SOLE Comment:Testing performed by : [address] [address] Urine 08/09/2024 11:5 4 AM LOCK INSTALLER 08/09/2024 11:58 AM LOCK INSTALLER us Hi Feliz DO LAB MICROBIOLOGY - GENERAL ORD ERABLES Final Result SOLE [address] [facility] Department [place] [address] * (ABNORMAL) Vaginitis panel Vaginal (08/09/2024 11:53 AM LOCK INSTALLER) Martha DNA probe Not Detected Not Detected Comment:Testing performed by : [address] [address] Gardnerella DNA probe Detected(A) Not Detected SOLE RAMIREZ Comment:Testing performed by : [address] [address] Trichomonas DNA probe Not Detected Not Detected SOLE RAMIREZ Comment: Interpretive Data Testing performed by [facility] via [employer] VPIII Microbial Identification Test, a DNA probe test for use in the detection and identification of Martha species, Gardnerella vaginalis and Trichomonas vaginalis nucleic acid in vaginal fluid specimens from patients with symptoms of vaginitis/vaginosis. Negative results for these tests suggest the patient does not have candidiasis, bacterial vaginosis and/or trichomoniasis when consistent with clinical signs and symptoms. Current interpretive data was last revised on 2020. Testing performed by: [address] [address] Vaginal 08/09/2024 11:5 3 AM LOCK INSTALLER 08/09/2024 11:58 AM LOCK INSTALLER us Hi Feliz DO LAB MICROBIOLOGY - GENERAL ORD ERABLES Final Result SOLE RAMIREZ [address] [facility] Department of Laboratories [place], [place] [id number] * Pap with reflex to High Risk HPV and Genotyping (Cytology Component) (01/25/2024 10:31 AM CDT) Thin prep (Pap test) 01/25/2024 10:31 AM CDT 01/26/2024 6:17 AM CDT Narrative PATHOLOGY [facility] - 01/31/2024 1:26 PM CDT EPIC results best viewed via link to PDF [facility] [place] [address] Note to Patients: This report may contain a detailed description of human tissue sent by a health care provider to the laboratory for pathologic evaluation. The content of this report is essential for diagnosis and may provide important critical findings. This information may be unfamiliar to patients to review without a medical professional present. It is advised that the patient review this report in the presence of a health care provider who can answer questions and explain the details. CYTOPATHOLOGY REPORT FINAL Patient Name: SHEA SULLIVAN Gender: F : 2000 (Age: 23) Address: [address] [place] [id number] [facility] #: [id number] Service: DEFAULT Location: Patient Type: [facility] SPECIMEN Taken: 01/25/2024 Received: 01/26/2024 Accessioned: 01/26/2024 Reported: 01/31/2024 Physician(s): Janett Nolasco M.D. FINAL INTERPRETATION SOURCE OF SPECIMEN Liquid based Thin Prep pap with Reflex HPV: STATEMENT OF ADEQUACY - Satisfactory for evaluation - Endocervical cells/transformation zone sample present GENERAL CATEGORIZATION: - Negative for squamous intraepithelial lesion or malignancy ml/01/31/2024 13:26 Breanna Lopez MS, CT (ASCP) Report Electronically Reviewed and Signed Out By Breanna Lopez MS, CT (ASCP) 01/31/2024 13:26:37 Cervicovaginal Cytology (Pap Test) Disclaimer: The Pap test is a screening test used to detect cervical cancer and its precursors; it is not a diagnostic procedure. False negative and false positive results do occur. Pap test results should be interpreted in the context of pertinent clinical information and biopsy results as indicated. [facility] Clinical Laboratory Improvement Amendments (CLIA) mandate that cytologic and histologic results be correlated for laboratory quality lab assoc & improvement standards. FOR ALL HIGH-GRADE CASES we request submission of follow-up histological material and/or reports that have not been previously provided so that we may fulfill said required standards. Gross Description A. Liquid based Thin Prep pap with Reflex HPV: Cervical/vaginal - Screening ThinPrep Clinical Diagnosis and History Last Menstrual Period: recent The patient is a 23 year old female with screening. Report Images and scanned documents, if included only viewable in PDF version The performance characteristics of some immunohistochemical stains, in-situ hybridization and fluorescence in-situ hybridization tests and immunophenotyping by flow cytometry cited in this report (if any) were determined by the Surgical Pathology Department at [facility] as part of an ongoing senior manager quality assurance program and in compliance with federally mandated regulations drawn from the Clinical Laboratory Improvement Act of 1988 (CLIA '88). Some of these tests rely on the use of analyte specific reagents and are subject to specific labeling requirements by the [place] Food and Drug Administration. Such diagnostic tests may only be performed in a facility that is certified by the Department of Health and Human Services as a high complexity laboratory under CLIA '88. The FDA has determined that such clearance or approval is not necessary. This test is used for clinical purposes. It should not be regarded as investigational or for research. Nevertheless, federal rules concerning the medical use of analyte specific reagents require that the following disclaimer be attached to the report: This test was developed and its performance characteristics determined by the Surgical Pathology Department of [facility]. It has not been cleared or approved by the U. S. Food and Drug Administration. Janett Nolasco MD LAB CYTOLOGY ORDERABLES F inal Result PATHOLOGY [facility] * Hepatitis C antibody Blood (03/07/2023 10:07 AM CDT) Hep C Ab Nonreactive Nonreactive Comment: Interpretive Data Nonreactive: Antibodies to HCV not detected. Does NOT exclude the possibility of recent exposure to HCV. Equivocal: Equivocal for HCV antibodies. Supplemental molecular testing will be automatically performed to determine infection status in accordance with current CDC screening recommendations. Reactive: Positive for HCV antibodies. This may represent current or past HCV infection. Supplemental molecular testing will be automatically performed to determine current infection status in accordance with current CDC screening recommendations. Interpretive data was last revised on 2019. Blood 03/07/2023 10:0 7 AM CDT 03/07/2023 1:04 PM CDT Carlo Samuel MD LAB MICROBIOLOGY - GENERAL ORDERABLES Final Result [facility] [address] [facility] Department [place] [address] from Last 3 Months or Most Recently Relevant to Health Maintenance Insurance [place] [facility] [place] Advance Directives For more information, please contact: [phone] * Full Code (Latest Code Status on File) Date Activated Date Inactivated Comments 09/02/2023 9:33 PM 09/04/2023 4:24 PM * Full Code Date Activated Date Inactivated Comments 09/02/2023 7:59 AM 09/02/2023 9:33 PM Full CPR in case of cardiopulmonary arrest * Full Code Date Activated Date Inactivated Comments 12/11/2018 8:32 PM 12/15/2018 4:41 PM * Full Code Date Activated Date Inactivated Comments 12/09/2018 8:37 PM 12/11/2018 8:32 PM Full CPR in case of cardiopulmonary arrest Care Teams Tobacco Sizer Relationship Specialty Start Date End Date No, Physician PCP - General Neurology 08/09/24
--- OUTSIDE RECORDS SUMMARY | 2024-08-15 02:50 | XMS_ITS | Referral Summary ---
Author Organization [facility] [address] [facility] Address [address] [facility] [place] [address] Care Team Providers Care Fence Gate Assembler Name Role Phone No, Physician Primary Care Provider [phone] Encounters Date Type Department Care Team Description 08/09/2024 11:45 AM [facility] - 08/09/2024 1:58 PM [facility] [address] [place] [id number] Bacterial vaginosis (Primary Dx); Rash Discharge Disposition: Discharge to home or self care from Last 3 Months Allergies Active Allergy Reactions Criticality Noted Date Comments Sulfa (Sulfonamide Antibiotics) Rash Medium 04/20 Medications vit [id number] a 27mg iron- 800 mcg-250 mg capsule [...] 3 (three) times a day 45 g 1 4 Active Additional Information Patient not taking.Reported on 01/25/2024 mupirocin (BACTROBAN) 2 % ointment Apply topically 3 (three) times a day 30 g 1 4 Active miconazole 2 % cream Apply topically 2 (two) times a day Apply to affect area of nipple BID. 28.35 g 1 4 Active fluconazole (DIFLUCAN) 150 mg tablet [...] maintain. Assessment & Plan (08/19/2020 1:28 PM TECHNICAL REPORT WRITER): Weight/BMI is in healthy range. Continue healthy lifestyle to maintain. Irregular menses 08/19/2020 Assessment & Plan (02/01/2021 9:17 AM CDT): Continue with apri at this time Assessment & Plan (08/19/2020 3:18 PM TECHNICAL REPORT WRITER): Patient advised to not smoke as smoking [...] abruptly. Assessment & Plan (08/19/2020 3:19 PM TECHNICAL REPORT WRITER): Will start on zoloft every day. She [...] since 0600 am. ROM plus positive. --cervix 260/-2 on my exam --prior LTCS x 1 [...] show present. --cervix very soft and stretchy, 660/-2 --OT at 4 mU/min --fetus overall reassuring, Cat 2 due to occasional variables. 09/02/2023, 1414, Gaurav --patient needing re-bolusing of epidural, was getting uncomfortable. --cervix 80/-1 --IUPC placed for OT titration --fetus reassuring 09/02/2023, 1999, Gaurav --cervix now C/+2 --recently received epidural re-dose [...] 05/10/2021 Assessment & Plan (08/19/2020 3:18 PM TECHNICAL REPORT WRITER): Retrieve records from previous pcp Will make next appt a well woman exam control counseling 08/19/2020 Assessment & Plan (08/19/2020 3:18 PM TECHNICAL REPORT WRITER): Patient advised to not smoke as smoking [...] trimester, antepartum 12/05/2018 03/30/2022 Overview (12/05/2018): - [facility] 12/05/2018: elevated BP in clinic - without neuro symptoms - preE labs unremarkable - VSS - reactive NST - patient for IOL on Monday - preE precautions given - ANGI Stone Uterine size-date discrepanc y in third [...] ABORH O Positive 05/29/2018 IDCOOMB Negative 05/29/2018 [id number] Nonreactive 09/28/2018 LABRPR Nonreactive 05/29/2018 RUBELIGG Positive (A) 05/29/2018 HEPBSAG Nonreactive 05/29/2018 Lab Results Component Value Date WBC 9.1 09/28/2018 HGB 11.5 (L) 09/28/2018 HCT 35.4 (L) 09/28/2018 MCV 98.9 (H) 09/28/2018 LABPLAT 224 09/28/2018 Midtrimester Labs Lab Results Component Value Date [id number] 09/28/2018 Lab Results Component Value Date HGB 11.5 (L) 09/28/2018 LABPLAT 224 09/28/2018 GBS: Lab Results Component Value Date MICROBIOLOGY Final Report: Negative 11/16/2018 Aneuploidy screening: low risk XY NIPT. rgs In parenting classes at school. Will graduate HS Jun 2018. Tasia Ackerman 12/09 @ 8pm if no spontaneous labor prior Sprain of ankle 03/29/2011 03/04/2018 Immunizations Immunization Administration Dates Next Due HPV, Quadrivalent 02/24/2017,03/03/2015 Influenza, Quadrivalent, Spl it, Preservative Free, Intramuscular 05/29/2018 Influenza, Unspecified 08/19/2020(Deferr ed: Patient Refused),03/26/2020(Deferred: Patient Refused) Meningococcal MCV4P (Menactra) 02/24/2017 Tdap 06/29/2023,09/28/2018 Varicella 02/24/2017 Social History Tobacco Use Types Packs/Day Years [...] staff should administer the PHQ-9) 1 03/30/2022 [place] Depression Scale Answer Date Recorded [place] Depression Scale Total 5 10/12/2023 The thought [...] on file Legal Sex Female 10:37 PM TECHNICAL REPORT WRITER Gender Identity Female 03/09/2022 12:32 PM CDT Sexual Orientation Bisexual 03/09/2022 12 :32 PM CDT Sexual Orientation Something else 03/09/2022 12 :32 PM CDT Occupation Industry Job Start Date Job End Date student Not on file Not on file Not on file Last Filed Vital Signs Vital Sign Reading Time Taken Comments Blood Pressure 132/88 08/09/2024 11:38 AM TECHNICAL REPORT WRITER Pulse 128 08/09/2024 11:38 AM TECHNICAL REPORT WRITER Temperature 37.1 C (98.8 F) 08/09/2024 11:38 AM TECHNICAL REPORT WRITER Respiratory Rate 20 08/09/2024 11:38 AM TECHNICAL REPORT WRITER Oxygen Saturation 100% 08/09/2024 11:38 AM TECHNICAL REPORT WRITER Inhaled Oxygen Concentration - - Weight 60.5 kg (133 lb 6.1 oz) 08/09/2024 11:38 AM TECHNICAL REPORT WRITER Height 172.7 cm (5' 8 ) 08/09/2024 11:38 AM TECHNICAL REPORT WRITER Body Mass Index 20.28 08/09/2024 11:38 AM TECHNICAL REPORT WRITER Plan of Treatment Not on file Procedures Procedure Name Priority Date/Time Associated Diagnosis Comments POCT HCG, URINE Routine 08/09/2024 12:30 PM TECHNICAL REPORT WRITER URINALYSIS AND REFLEX TO MICROSCOPIC AND CULTURE STAT 08/09/2024 11:54 AM TECHNICAL REPORT WRITER N. GONORRHOEAE/C. TRACHOMATIS AMPLIFICATION STAT 08/09/2024 11:54 AM TECHNICAL REPORT WRITER VAGINITIS PANEL STAT 08/09/2024 11:53 AM TECHNICAL REPORT WRITER PAP WITH REFLEX TO HIGH RISK HPV Routine 01/25/2024 10:31 AM CDT Well woman exam with routine gynecological exam HEPATITIS C ANTIBODY Routine 03/07/2023 10:07 AM CDT Encounter for supervision of other normal in first trimester from Last 3 Months or Most Recently Relevant to Health Maintenance Results * POCT hCG, urine (08/09/2024 12:30 PM TECHNICAL REPORT WRITER) HCG, ur, POC Negative Negative Lot Number [id number] QC Backgroud Clear Acceptable QC Control Line Acceptable Urine 08/09/2024 12:3 0 PM TECHNICAL REPORT WRITER Hi Feliz DO POINT OF CARE TEST ORDERABLES Final Result * N. gonorrhoeae/C. trachomatis Amplification Urine (08/09/2024 11:54 AM TECHNICAL REPORT WRITER) C. trachomatis Not Detected Not Detected Comment:Testing performed by : [facility], [address] [place] [address], [place]., [address] N. gonorrhoeae Not Detected Not Detected SOLE RAMIREZ Comment: Interpretive Data This assay detects Chlamydia trachomatis and Neisseria gonorrhoeae by nucleic acid amplification testing (NAAT). This assay has been cleared by the [place] Food and Drug administration. The performance characteristics of this test have been verified by the [facility]. The performance characteristics of this test have not been evaluated in individuals less than 14 years of age. Current Interpretive Data last revised 2023. Testing performed by: [address] [address] Urine (None) 08/09/2024 11:5 4 AM TECHNICAL REPORT WRITER 08/09/2024 11:58 AM TECHNICAL REPORT WRITER us Hi Feliz DO LAB MICROBIOLOGY - GENERAL ORD ERABLES Final Result [facility] RAM[facility]Z [address] [facility] Department [place] [address] * Urinalysis reflex to microscopic and culture Urine (08/09/2024 11:54 AM TECHNICAL REPORT WRITER) Color, ur Yellow Yellow Comment:Testing performed by : [address] [address] Clarity, ur Clear Clear SOLE Comment:Testing performed by : [address] [address] Specific gravity, ur 1.017 1.003 - 1.030 SOLE Comment:Testing performed by : [address] [address] pH, urine 6.5 SOLE Comment: Interpretive Data U rine pH is affected by diet, medications, systemic acid-base disturbances, and renal tubular function. pH may affect urinary stone formation. For example, urine pH below 6.0 may help reduce the tendency for calcium phosphate stones and pH greater than 6.0 may reduce the tendency for uric acid stone formation. Source: [employer] Current Interpretive Data was last revised on 2017 Testing performed by: [address] [address] Protein, ur ql Negative Negative SOLE Comment:Testing performed by : [address] [address] Glucose, ur ql Negative Negative SOLE Comment:Testing performed by : [address], [place]., [address] Ketones, ur Negative Negative SOLE Comment:Testing performed by : [address], [place]., [address] Bilirubin, ur Negative Negative SOLE Comment:Testing performed by : [address], [place]., [address] Blood, ur Negative Negative SOLE Comment:Testing performed by : [address], [place]., [address] Urobilinogen, ur <2.0 <2.0 mg/dL SOLE Comment:Testing performed by : [address], [place]., [address] Nitrite, ur Negative Negative SOLE Comment:Testing performed by : [address], [place]., [address] Leukocyte esterase, ur Negative Negative SOLE Comment:Testing performed by : [address], [place]., [address] UA reflex comment Reflex conditions for microscopic UA and culture not met. SOLE Comment:Testing performed by : [address], [place]., [address] Urine 08/09/2024 11:5 4 AM TECHNICAL REPORT WRITER 08/09/2024 11:58 AM TECHNICAL REPORT WRITER Hi Feliz DO LAB MICROBIOLOGY - GENERAL ORD ERABLES Final Result SOLE [address] [facility] Department [place] [address] * (ABNORMAL) Vaginitis panel Vaginal (08/09/2024 11:53 AM TECHNICAL REPORT WRITER) Martha DNA probe Not Detected Not Detected Comment:Testing performed by : [address], [place]., [address] Gardnerella DNA probe Detected(A) Not Detected SOLE Comment:Testing performed by : [address], [place]., [address] Trichomonas DNA probe Not Detected Not Detected SOLE RAMIREZ Comment: Interpretive Data Testing performed by [facility] via Affirm VPIII Microbial Identification Test, a [...] last revised on 2020. Testing performed by: [facility], [address] [place] [address]., [address] Vaginal 08/09/2024 11:5 3 AM TECHNICAL REPORT WRITER 08/09/2024 11:58 AM TECHNICAL REPORT WRITER us Hi Feliz DO LAB MICROBIOLOGY - GENERAL ORD ERABLES Final Result [facility] [address] [facility] Department [place] [address] * Pap with reflex to High Risk HPV and Genotyping (Cytology Component) (01/25/2024 10:31 AM CDT) Thin prep (Pap test) 01/25/2024 10:31 AM CDT 01/26/2024 6:17 AM CDT Narrative PATHOLOGY [facility] - 01/31/2024 1:26 PM CDT EPIC results best viewed via link to PDF [facility] [place] [address] Note to Patients: This report may contain [...] REPORT FINAL Patient Name: SHEA SULLIVAN Gender: Jerry : 2000 (Age: 23) Address: [address] [place] [id number] Hospital #: [id number] Service: DEFAULT Location: Patient Type: LEELA SPECIMEN Taken: 01/25/2024 Received: 01/26/2024 Accessioned: 01/26/2024 Reported: 01/31/2024 Physician(s): Janett Nolasco M.D. FINAL INTERPRETATION SOURCE OF SPECIMEN Liquid based Thin Prep pap with Reflex HPV: STATEMENT OF ADEQUACY - Satisfactory for evaluation - Endocervical cells/transformation zone sample present GENERAL CATEGORIZATION: - Negative for squamous intraepithelial lesion or malignancy /01/31/2024 13:[address] (ASCP) Report Electronically Reviewed and Signed Out By Breanna Lopze MS CT (ASCP) 01/31/2024 13:26:37 Cervicovaginal Cytology (Pap Test) Disclaimer: The Pap test is a screening test used to detect cervical cancer and its precursors; it is not a diagnostic procedure. False negative and false positive results do occur. Pap test results should be interpreted in the context of pertinent clinical information and biopsy results as indicated. [facility] Clinical Laboratory Improvement Amendments (CLIA) mandate that cytologic and histologic results be correlated for laboratory quality control systems manager & improvement standards. FOR ALL HIGH-GRADE CASES [...] determined by the Surgical Pathology Department at [facility] as part of an ongoing quality improvement specialist program and in compliance with federally mandated [...] determined by the Surgical Pathology Department of [facility]. It has not been cleared or approved by the U. S. Food and Drug Administration. Janett Nolasco MD LAB CYTOLOGY ORDERABLES F inal Result PATHOLOGY [facility] * Hepatitis C antibody Blood (03/07/2023 10:07 [...] LAB MICROBIOLOGY - GENERAL ORDERABLES Final Result Performing Organization Address City/[facility] Co de Phone Number [facility] [address] [facility] Department of Laboratories [place], [place] [id number] from Last 3 Months or Most Recently Relevant to Health Maintenance Insurance AETNA [facility] Member Subscriber Plan / Payer (Ef fective 2023-Present) Name:Shea Sullivan Relation to Subscriber:Self Name:Shea Sullivan Rakesh Payer ID:[id number] (NAIC) Group ID:Not on file Type:MEDICAID RISK OTHER Address: [facility] [id number] [place] [id number] AETNA BETTER [facility] AETNA BETTER [facility] Advance Directives For more information, please contact: [phone] * Full Code (Latest Code Status on [...] in case of cardiopulmonary arrest Care Teams Fence Gate Assembler Relationship Specialty Start Date End Date No, Physician PCP - General Neurology 08/09/24
[2024-08-15 04:05] VITALS: BP 104/71; PULSE 84; RESP 16; TEMP 36.7; O2SAT 99
--- NOTE | 2024-08-15 05:21 | ED.FEMALEGU ---
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 Was recently treated with bacterial vaginosis and yeast infection with combination medications including clean the chisel Larios, metronidazole, Diflucan. She studies she is still experiencing vaginitis type symptoms with burning pain in the vulvovaginal area. No pain with urination, denies any fever, chills, back pain. The symptoms are gone for 1 week. She states that for last 2 days she is also having some pharyngitis type pain with painful swallowing. Endorses min on me, no sexually transmitted disease history or concerns for STDs at this time. No systemic features such as nausea, abdominal pain, vomiting, diarrhea constipation. No vaginal bleeding. Normal menses. Denies chance of . Related Data Home Medications ?Medication ?Instructions ?Recorded ?Confirmed ?Last Taken ?Type clotrimazole 1 % topical cream applic topical 08/15/24 08/14/24 History metronidazole 500 mg tablet mg 08/15/24 08/14/24 History Allergies Allergy/AdvReac Type Severity Reaction Status Date / Time Sulfa (Sulfonamide Allergy Rash Verified 08/15/24 04:06 Antibiotics) Review of Systems Review of Systems: As reviewed above in HPI [facility] Past Medical History Medical History Abscess delivery delivered Surgical History Surgical History H/O section X1-2019 Family History Family History Father Hypertension Mother Alive and well Social History Social History Smoking status: Never smoker Second hand tobacco smoke exposure: No Substance use: never Living arrangements: with family Occupation/Education: unemployed Gender identity (if verbalized by the patient): Female Sexual Orientation (if Verbalized by the Patient): Straight or Heterosexual Exam Narrative: GENERAL: [Well-appearing, well-nourished, and in no acute distress.] HEAD: [Normocephalic, atraumatic.] EYES: [PERRLA and EOMI.] ENT: Posterior oropharynx with some erythema and cobblestoning, no lymphadenopathy in the neck, posterior oropharynx without any exudates or tonsillar erythema. Uvula is midline. No pooling secretions. NECK: Supple. CHEST: [Clear to auscultation. No respiratory distress.] HEART: [Regular rate and rhythm]. No murmur heard. [Normal peripheral pulses.] ABDOMEN: [Soft, nondistended], [nontender], [No rigidity or guarding] EXTREMITIES: Normal range of motion. [No edema.] SKIN: Warm, dry, no rash. NEURO: [No focal deficits]. Alert and oriented [x3.] PSYCH: [Normal mood and affect.] Course Vital Signs Vital signs: Vital Signs Temperature 36.8 C 08/15/24 02:50 Pulse Rate 101 H 08/15/24 02:50 Respiratory Rate 16 08/15/24 02:50 Blood Pressure 119/69 08/15/24 02:50 Pulse Oximetry 99 08/15/24 02:50 Oxygen Delivery Room Air 08/15/24 02:50 Temperature 36.7 C 08/15/24 04:05 Pulse Rate 84 08/15/24 04:05 Respiratory Rate 16 08/15/24 04:05 Blood Pressure 104/71 08/15/24 04:05 Pulse Oximetry 99 08/15/24 04:05 Oxygen Delivery Room Air 08/15/24 02:50 MDM - Female Genitourinary MDM Narrative Medical decision making narrative: 23-year-old female presenting to the emergency department for persistent vulvovaginitis type symptoms consistent with her BV and yeast infection she was diagnosed with recently. She also started developing pharyngitis type symptoms with a sore throat. She has some cobblestoning and erythema in the back of her throat but no tonsillar enlargement or exudates. She is afebrile, normal vital signs. Unremarkable abdominal examination. Generally urinary examination was deferred. Denies any rash or lesions in the vulvovaginal area. No herpes history. No STD concerns presently per patient. She is monogamous wit her . Has tried antibiotics including metronidazole and Diflucan ankle metronidazole for her BV. Denies any vaginal bleeding. A urinalysis and test was obtained as well as swabs for strep and COVID, influenza. Patient has failed first-line therapy for vulvovaginitis type symptoms and we can try alternative therapies including clindamycin therapy. Will obtain her results today and refer her to OBGYN as needed for further evaluation outpatient if this medication failed as well. Prior to completing her evaluation and laboratory studies I was informed by nursing staff the patient had eloped. Not able to provide appropriate medications or follow-up instructions at this time. Her strep test did come back positive, had the charge nurse attempt to call and prescribe the appropriate antibiotic electronically. Medical Records Attestation: I reviewed the patient's medical records. Lab Data Attestation: I reviewed the patient's lab results. Labs: Lab Results 08/15/24 08/15/24 08/15/24 Range/Units 05:17 05:23 05:25 Urine Color Yellow (Yellow) Urine Appearance Cloudy H (Clear) Urine pH 6.0 (5.0-9.0) Ur Specific [place] 1.028 (1.001-1.035) Urine Protein Negative (Negative) mg/dL Urine Glucose (UA) Negative (Negative) mg/dL Urine Ketones Trace H (Negative) mg/dL Ur Blood (Man) Negative (Negative) Urine Nitrate Negative (Negative) Urine Bilirubin Negative (Negative) Urine Urobilinogen 1.0 (<2.0) mg/dL Leukocyte Esterase Rfl 1+ H (Negative) KARI/UL Urine RBC 3-5 H (0-2) /hpf Urine WBC 11-20 H (0-3) /hpf Ur Squamous Epith Cells Occasional (Few) /hpf Urine Bacteria 1+ H /hpf Urine Casts 0-2 POC Urine HCG, Qual Negative (Negative) Influenza A (RT-PCR) Negative (Negative) Influenza B (RT-PCR) Negative (Negative) RSV (RT-PCR) Negative (Negative) SARS-CoV-2 RNA (RT-PCR) Negative (Negative) Group A Strep (PCR) Detected A (Negative) Discharge Plan Discharge Clinical Impression: Vulvovaginitis, Acute bacterial pharyngitis Patient Disposition: Elopement After Seen by Prov Condition: Stable Patient Language: Serbian Prescriptions: New penicillin V potassium 500 mg tablet 500 mg PO Q12H 10 Days Qty: 20 0RF No Action fluconazole 150 mg tablet 150 mg PO ONCE Qty: 2 0RF Rx Instructions: as a single dose after antibiotics are complete. If symptoms persist, take second dose 3 days later. metronidazole 500 mg tablet clotrimazole 1 % cream TOPICAL Follow-up/Referrals: PHYSICIAN,CERTIFIED TUMOR REGISTRAR [Primary Care Provider] -
[2024-08-15 05:28] LABS: BEDSIDEPREGUCG Negative (Negative)
[2024-08-15 05:58] LABS: Add Urine Microscopic? YES; Appearance Urine Cloudy (Clear); Bacteria Urine 1+ /hpf; Bilirubin Urine Negative (Negative); Blood Urine Negative (Negative); Color Urine Yellow (Yellow); Glucose Urine UA Negative (Negative); Ketones Urine Trace mg/dL (Negative); Leukocyte Esterase Ur 1+ LEU/UL (Negative); Nitrate Urine Negative (Negative); Non Pathogenic Casts 0-2; Protein Urine Negative (Negative); Specific Grav Ur 1.028 (1.001-1.035); Squamous Epithelial Cell Urine Occasional /hpf (Few)
--- NOTE | 2024-08-15 06:00 | PC.NURSE ---
Patient called out to nurses station and state that she needs to leave to take her son to school.
[2024-08-15 06:13] LABS: Strep Group A RT-PCR DETECTED (Negative)
[2024-08-15 06:27] LABS: Influenza A QL RT-PCR Negative (Negative); Influenza B QL RT-PCR Negative (Negative); RSV RNA, RT-PCR Negative (Negative); SARS-CoV-2 RNA PCR Negative (Negative)
== END 2024-08-15 06:03 | disposition left against medical advice (07) ==
PROVIDERS: Emergency Provider Student in an Organized Health Care Education/Training Program
DX: N76.0 Acute vaginitis (principal); J02.0 Streptococcal pharyngitis; Z20.822 Contact with and (suspected) exposure to COVID-19
CPT/HCPCS: 81001; 81025; 87086; 87637; 87651; 99283

== ENCOUNTER 2024-09-03 08:05 | Emergency (ER) | payer OTHER, SELFPAY ==
--- NOTE | 2024-09-03 08:09 | ED.URI ---
HPI - URI/Sore Throat General Chief Complaint: Upper Respiratory Infection Stated Complaint: sore throat,hard to swallow Time Seen by Provider: 09/03/24 08:20 Source: patient and RN notes reviewed Mode of arrival: ambulatory Limitations: no limitations History of Present Illness HPI Narrative: 23-year-old female presents concern sore throat, painful swallowing for 2 days. She reports some mild headache and mild nausea. Reports nose and stuffy nose. Denies cough. She denies fever. MD elicited complaint: sore throat Related Data Allergies Allergy/AdvReac Type Severity Reaction Status Date / Time Sulfa (Sulfonamide Allergy Rash Verified 09/03/24 08:12 Antibiotics) Review of Systems Review of Systems: CONSTITUTIONAL: Denies malaise, chills, sweats, or fever. EYES: Denies visual changes, redness, or discharge. ENT: Reports rhinorrhea, congestion, and sore throat. CARDIOVASCULAR: Denies chest pain, palpitations, or edema. RESPIRATORY: Denies cough. Denies dyspnea. GASTROINTESTINAL: Denies abdominal pain, vomiting, diarrhea. Reports nausea SKIN: Denies rash or itching. MUSCULOSKELETAL: Denies myalgia. NEUROLOGIC: Reports headache. All systems reviewed & are unremarkable except as noted in HPI and below PMFSH Past Medical History Medical History Abscess delivery delivered Surgical History Surgical History H/O section X1-2019 Family History Family History Father Hypertension Mother Alive and well Social History Social History Smoking status: Never smoker Second hand tobacco smoke exposure: No Substance use: never Living arrangements: with family Occupation/Education: unemployed Gender identity (if verbalized by the patient): Female Sexual Orientation (if Verbalized by the Patient): Straight or Heterosexual Comments At time of signature, agree with nursing past medical, surgical, social and family history. There is no relevant family history pertinent to the presenting complaint Exam Narrative: GENERAL: Well-appearing, well-nourished, and in no acute distress. HEAD: Normocephalic EYES: PERRLA, conjunctivae clear ENT: Nares clear. Mucous membranes moist. TM pearly hein with dull light reflex bilaterally; no tragal tenderness. Oropharynx erythematous without lesions. Tonsils enlarged with exudate, no drooling, no hoarseness, no trismus, uvula midline. NECK: Supple. No lymphadenopathy CHEST: Clear to auscultation, breath sounds equal. No wheezing, rhonchi, rales, or stridor. No respiratory distress, speaks in full sentences. HEART: Regular rate and rhythm. No murmur heard. SKIN: Warm, dry, no rash. NEURO: Alert and oriented x3. PSYCH: Normal mood and affect Course Course Emergency Course: Patient is aware of diagnosis, understands and agrees to treatment plan. Anticipatory guidance given. Patient agrees to follow-up as directed and is aware of reasons to seek care at the emergency department. Portions of this record may have been created with voice recognition software Level of Care: Express Care Visit Vital Signs Vital signs: Reviewed. MDM - URI/Sore Throat MDM Narrative Medical decision making narrative: Differential diagnosis considered: Lamas virus, strep pharyngitis, allergic rhinitis, upper respiratory tract infection, sinusitis, rhinosinusitis, nasopharyngitis. viral pharyngitis, otitis media, otitis externa, pneumonia, bronchitis, viral cough syndrome, viral syndrome, and influenza. Exam findings show no acute concerns or changes; patient is non-toxic appearing and is in no distress. Patient is appropriate for outpatient treatment and follow-up. Lab Data Attestation: I reviewed the patient's lab results. Critical Care Time Critical Care Time Critical Care Time: No Discharge Plan Discharge Clinical Impression: Acute streptococcal pharyngitis Patient Disposition: Home, Self-Care Condition: Stable Instructions: Antibiotic Form, Strep Throat (ED) Additional Instructions: -Take the medication as prescribed. Throw away the toothbrush after 24hours of antibiotic. -Eat and drink things that are easy to swallow, like tea or soup, or popsicles to suck on. -Oral rinses such as: Salt water gargles and/or may use topical anesthetic (eg. Chloraseptic spray) or lozenges to relieve dryness or throat pain). -Take Tylenol and ibuprofen as needed for pain and fever as directed. -Frequent hand washing or hand public health sanitarian is one of the best ways to prevent spread of infection. -Follow up with primary care provider in 2-3 days if condition is not improving; or seek ER visit if you have trouble breathing, cannot drink enough fluids, have muffled voice, difficulty opening your mouth, or severe swelling. Patient Language: Gambian Prescriptions: New amoxicillin-pot clavulanate 875-125 mg tablet 1 tablet PO Q12H 10 Days Qty: 20 0RF Follow-up/Referrals: PHYSICIAN,[facility] [Primary Care Provider] - Time of Disposition: 08:27
[2024-09-03 08:17] VITALS: BP 114/66; PULSE 95; RESP 14; TEMP 36.7; O2SAT 100
[2024-09-03 08:23] LABS: EDSTREPNEGPOS1 Positive (Negative)
== END 2024-09-03 08:30 | disposition home or self-care (01) ==
PROVIDERS: Emergency Provider Nurse Practitioner
DX: J02.0 Streptococcal pharyngitis (principal)
CPT/HCPCS: 87880; 99213; G0463

== ENCOUNTER 2024-09-11 14:27 | Emergency (ER) | payer OTHER, SELFPAY ==
--- NOTE | 2024-09-11 14:29 | ED.SKABFB ---
HPI - Skin/Abscess/Foreign Bdy General Chief complaint: Urogenital-Female Stated complaint: mastitis left side Time Seen by Provider: 09/11/24 14:28 Source: patient Mode of arrival: ambulatory Limitations: no limitations History of Present Illness HPI narrative: Ernestina is a 23-year-old female patient presenting to the clinic today with complaints of possible mastitis to the left breast. She reports she has had left upper breast pain and redness since last night. She tried to breastfeed this morning and that did not help. She has been decreasing the amount breast-feeding that she has been doing trying to wean her 1-year-old. States that he typically will now breast feed twice a day once in the morning and once at night. She denies any purulent discharge or blood coming from the nipple. No fevers but does feel like she has some body aches and chills. Related Data Allergies Allergy/AdvReac Type Severity Reaction Status Date / Time Sulfa (Sulfonamide Allergy Rash Verified 09/11/24 14:31 Antibiotics) Review of Systems Review of Systems: Pertinent positives per HPI. Patient denies any fever, chills, rash, headache, visual changes, dizziness, cough, runny nose, sore throat, shortness of breath, chest pain, palpitations, nausea, vomiting, diarrhea, constipation, abdominal pain, or any urinary issues. FOR[facility]LY [facility], [facility] Past Medical History Medical History Abscess delivery delivered Surgical History Surgical History H/O section X1-2019 Family History Family History Father Hypertension Mother Alive and well Social History Social History Smoking status: Never smoker Second hand tobacco smoke exposure: No Substance use: never Living arrangements: with family Occupation/Education: unemployed Gender identity (if verbalized by the patient): Female Sexual Orientation (if Verbalized by the Patient): Straight or Heterosexual Comments At the time of my signature, I reviewed and agree with the nursing past medical, surgical, social, and family history. There is no relevant family history pertinent to the patient complaint. Exam Narrative: General: Well-developed, well nourished, in no apparent distress Head: Normocephalic, atraumatic. Cardio: Regular rate and rhythm, s1 and s2 normal, no murmur appreciated. Resp: Clear to auscultation bilaterally, no rhonchi, rales, wheezing or rubs. Integumentary: [place], warm, and dry, redness with mild swelling and tenderness to palpation over the left upper lateral lobe of the breast, palpable non fluctuant knotted area that is tender. Course Course Emergency Course: Portions of this record may have been created with voice recognition software. Level of Care: Express Care Visit Vital Signs Vital signs: Vital signs reviewed MDM - Skin/Abscess/Foreign Bdy MDM Narrative Medical decision making narrative: At the time of visit patient is resting comfortably on the exam table. Patient appears to be nontoxic. Plan: I suspect patient has early mastitis to the left upper lateral lobe of the breath. Prescription for Keflex was sent to the pharmacy. Will also send and Diflucan as patient has had recent antibiotics for other illnesses. She is taking a daily probiotic. Supportive measures were discussed with the patient and they voiced understanding discharge instructions and agrees to treatment plan. Return precautions reviewed Differential Diagnosis Differential diagnosis: Likely abscess of skin or subcutaneous tissue, viral exanthem, dermatophytosis, urticaria, herpes zoster, allergic reaction to drug, cellulitis, eczema, insect bites, impetigo, contact dermatitis and other (Mastitis, clogged milk duct) Discharge Plan Discharge Clinical Impression: Acute mastitis of left breast Patient Disposition: Home, Self-Care Condition: Stable Instructions: Antibiotic Form, Mastitis (ED) Additional Instructions: Continue breast-feeding as discussed. Take cephalexin and fluconazole as prescribed May with apply cool compresses to the affected area May take Tylenol/Motrin as needed for pain Follow-up with your primary care doctor in 4-5 days if symptoms persist Patient Language: Spanish Prescriptions: New cephalexin 500 mg capsule 500 mg PO Q6H 7 Days Qty: 28 0RF fluconazole 150 mg tablet 150 mg PO ONCE Qty: 2 0RF Rx Instructions: as a single dose. May repeat in 72 hours if needed. No Action amoxicillin-pot clavulanate 875-125 mg tablet 1 tablet PO Q12H 10 Days Qty: 20 0RF Follow-up/Referrals: PHYSICIAN,FLOOR ASSOCIATE [Primary Care Provider] - Time of Disposition: 14:42 Quality NIHSS Nursing Documentation ED NIHSS nursing documentation: reviewed/agree
[2024-09-11 14:34] VITALS: BP 107/79; PULSE 112; RESP 16; TEMP 37.3; O2SAT 99
== END 2024-09-11 14:50 | disposition home or self-care (01) ==
PROVIDERS: Emergency Provider Nurse Practitioner Family
DX: N61.0 Mastitis without abscess (principal)
CPT/HCPCS: 99213; G0463

== ENCOUNTER 2024-10-01 15:51 | Emergency (ER) | payer OTHER, SELFPAY ==
[2024-10-01 16:00] VITALS: BP 127/84; PULSE 98; RESP 14; TEMP 36.9; O2SAT 100
--- NOTE | 2024-10-01 16:16 | ED_ITS ---
HPI - Skin/Abscess/Foreign Bdy General Chief complaint: Skin/Abscess/Foreign Body Stated complaint: wasp sting back left knee Time Seen by Provider: 10/01/24 16:12 Source: patient and RN notes reviewed Mode of arrival: ambulatory Limitations: dementia History of Present Illness HPI narrative: 23-year-old female presents concern for insect sting. Reports a wasp stung her 2 days ago. Reports the area was slightly red but the redness has spread and is tender to touch. She reports it is also itchy. She reports there is a streak this started going down her leg. She denies any fever, body aches, chills, sweats. She reports she used PRID, hydrocortisone cream, Benadryl. MD complaint: insect bite/sting and other (Redness) Related Data Allergies Allergy/AdvReac Type Severity Reaction Status Date / Time Sulfa (Sulfonamide Allergy Rash Verified 10/01/24 15:54 Antibiotics) Review of Systems Review of Systems: CONSTITUTIONAL: Denies malaise, chills, sweats, or fever. EYES: Denies redness, or discharge. ENT: Denies rhinorrhea, congestion, swollen lips, swollen tongue CARDIOVASCULAR: Denies chest pain, palpitations, or edema. RESPIRATORY: Denies cough or dyspnea. GASTROINTESTINAL: Denies abdominal pain, nausea, vomiting SKIN: Reports redness, warmth, tenderness around sting site on the left lower leg, posterior. Denies purulent drainage, vesicles, bullae, numbness, pain beyond proportion MUSCULOSKELETAL: Denies joint pain or myalgia. NEUROLOGIC: Denies headache. All systems reviewed & are unremarkable except as noted in HPI and below PMFSH Past Medical History Medical History Abscess delivery delivered Surgical History Surgical History H/O section X1-2019 Family History Family History Father Hypertension Mother Alive and well Social History Social History Smoking status: Never smoker Second hand tobacco smoke exposure: No Substance use: never Living arrangements: with family Occupation/Education: unemployed Gender identity (if verbalized by the patient): Female Sexual Orientation (if Verbalized by the Patient): Straight or Heterosexual Comments At time of signature, agree with nursing past medical, surgical, social and family history. There is no relevant family history pertinent to the presenting complaint Exam Narrative: GENERAL: Well-appearing, well-nourished, and in no acute distress. HEAD: Normocephalic, atraumatic. EYES: PERRLA, conjunctivae clear ENT: Mucous membranes moist. NECK: Supple. No lymphadenopathy CHEST: Clear to auscultation. No respiratory distress. HEART: Regular rate and rhythm. SKIN: Warm, dry. Erythema, induration, tenderness, warmth with sharp margins noted (xx). No vesicles, bullae, necrosis, ecchymosis, crepitus noted. NEURO: Alert and oriented x3. PSYCH: Normal mood and affect Course Course Emergency Course: Patient is aware of diagnosis, understands and agrees to treatment plan. Anticipatory guidance given. Patient agrees to follow-up as directed and is aware of reasons to seek care at the emergency department. Portions of this record may have been created with voice recognition software Level of Care: Express Care Visit Vital Signs Vital signs: Vital Signs Temperature 98.4 F 10/01/24 16:00 Pulse Rate 98 10/01/24 16:00 Respiratory Rate 14 10/01/24 16:00 Blood Pressure 127/84 10/01/24 16:00 Pulse Oximetry 100 10/01/24 16:00 Oxygen Delivery Room Air 10/01/24 16:00 Temperature 98.4 F 10/01/24 16:00 Pulse Rate 98 10/01/24 16:00 Respiratory Rate 14 10/01/24 16:00 Blood Pressure 127/84 10/01/24 16:00 Pulse Oximetry 100 10/01/24 16:00 Oxygen Delivery Room Air 10/01/24 16:00 Reviewed. MDM - Skin/Abscess/Foreign Bdy MDM Narrative Medical decision making narrative: I evaluated this in the express care. History is obtained from patient who is an independent historian and physical exam was performed.? Available medical records were reviewed. ? Exam findings and relevant testing show no acute concerns or changes; patient is non-toxic appearing and is in no distress. No risk factors or findings concerning for epidural abscess, diskitis, vertebral osteomyelitis, cord compression, cauda equina, vertebral fracture or bone malignancy, AAA, or pyelonephritis. Patient instructed to consider further imaging and workup through their primary care physician as an outpatient if symptoms persist. Does not appear at this time to be erythema multiforme, bullous, SJS, TEN; no evidence at this time to suggest RMSF, NSTI, endocarditis or Lyme disease; patient looks well, nontoxic and is tolerating oral intake; no neurologic signs or symptoms; no headache, photophobia or neck pain; afebrile.? Patient does not have history of of penetrating trauma, laceration, blunt trauma, recent surgery, immunosuppression, malignancy, obesity, alcoholism, corticosteroid use.? Discussed the importance of follow-up, patient agrees; question, cellulitis v ersus necrotizing soft tissue infection versus abscess.?? Patient is appropriate for outpatient treatment and follow-up. Critical Care Time Critical Care Time Critical Care Time: No Discharge Plan Discharge Clinical Impression: Infected insect bite or sting Patient Disposition: Home Condition: Stable Instructions: Insect Bite or Sting (ED) Additional Instructions: Please follow up with your Primary Care Doctor within 48-72 hours - call for an appointment. Rest and elevate affected area; apply moist heat 3-4 times daily for 10-15 minutes. Take Motrin 600mg every 8 hours with food for pain. Please take Antibiotics as directed. If you experience any worsening redness, swelling, streaking (red lines), fever or chills please go to the ER You can apply hydrocortisone cream and take Benadryl as needed for itchiness. Patient Language: Sami Prescriptions: New penicillin V potassium 500 mg tablet 500 mg PO Q12H 10 Days Qty: 20 0RF Follow-up/Referrals: PHYSICIAN,INDUSTRIAL ROBOTICS MECHANIC [Primary Care Provider] - Time of Disposition: 16:20
== END 2024-10-01 16:25 | disposition home or self-care (01) ==
PROVIDERS: Emergency Provider Nurse Practitioner
DX: T63.461A Toxic effect of venom of wasps, accidental (unintentional), initial encounter (principal); L08.9 Local infection of the skin and subcutaneous tissue, unspecified
CPT/HCPCS: 99213; G0463

== ENCOUNTER 2024-11-14 08:06 | Emergency (ER) | payer OTHER, SELFPAY ==
[2024-11-14 08:15] VITALS: BP 115/64; PULSE 83; RESP 20; TEMP 36.8; O2SAT 100
--- NOTE | 2024-11-14 08:18 | ED.URI ---
HPI - URI/Sore Throat General Chief Complaint: Upper Respiratory Infection Stated Complaint: Sore Throat Source: patient Mode of arrival: ambulatory Limitations: no limitations History of Present Illness HPI Narrative: Patient is a 24 year old female who presents to the clinic with complaints of a sore throat since yesterday. She states that she frequently gets strep throat. She has not been taking anything over the counter. Denies being around anyone that has been sick, any shortness of breath, or difficulty swallowing. Related Data Home Medications ?Medication ?Instructions ?Recorded ?Confirmed ?Last Taken ?Type cabergoline 0.5 mg tablet mg 11/14/24 Unknown History Allergies Allergy/AdvReac Type Severity Reaction Status Date / Time Sulfa (Sulfonamide Allergy Rash Verified 11/14/24 08:21 Antibiotics) Review of Systems Review of Systems: CONSTITUTIONAL: Denies body aches, fever, chills, or sweats. EYES: Denies visual changes, redness, or discharge. ENT: Reports sore throat. Denies rhinorrhea, congestion, or otalgia. CARDIOVASCULAR: Denies chest pain, palpitations, or edema. RESPIRATORY: Denies dyspnea. GASTROINTESTINAL: Denies abdominal pain, nausea, vomiting, or diarrhea. SKIN: Denies rash NEUROLOGIC: Denies headache All systems reviewed & are unremarkable except as noted in HPI and below PMFSH Past Medical History Medical History Abscess delivery delivered Surgical History Surgical History H/O section X1-2019 Family History Family History Father Hypertension Mother Alive and well Social History Social History Smoking status: Never smoker Second hand tobacco smoke exposure: No Substance use: never Living arrangements: with family Occupation/Education: unemployed Gender identity (if verbalized by the patient): Female Sexual Orientation (if Verbalized by the Patient): Straight or Heterosexual Comments At time of signature, I have reviewed and agree with nursing past medical, surgical, social and family history unless otherwise noted. Please see nursing chart for further information. There is no relevant family history pertinent to the presenting complaint. Exam Narrative: GENERAL: Ill-appearing, ?no acute distress. EYES: ?conjunctivae clear ENT: Mucous membranes moist. TM pearly hein with normal light reflex bilaterally; no tragal tenderness. Oropharynx erythematous without lesions. Tonsils enlarged and without exudate. No drooling, no hoarseness, no trismus, uvula midline. No tripod positioning, hot potato voice, or soft palate swelling. NECK: Supple. No lymphadenopathy CHEST: Clear to auscultation, breath sounds equal. ?No respiratory distress, speaks in full sentences. HEART: Regular rate and rhythm. No murmur heard. SKIN: Warm, dry, no rash. NEURO: Alert and oriented x3.? Course Course Level of Care: Express Care Visit Vital Signs Vital signs: Vital Signs Temperature 98.3 F 11/14/24 08:15 Pulse Rate 83 11/14/24 08:15 Respiratory Rate 20 11/14/24 08:15 Blood Pressure 115/64 11/14/24 08:15 Pulse Oximetry 100 11/14/24 08:15 Oxygen Delivery Room Air 11/14/24 08:15 Temperature 98.3 F 11/14/24 08:15 Pulse Rate 83 11/14/24 08:15 Respiratory Rate 20 11/14/24 08:15 Blood Pressure 115/64 11/14/24 08:15 Pulse Oximetry 100 11/14/24 08:15 Oxygen Delivery Room Air 11/14/24 08:15 Reviewed. MDM - URI/Sore Throat MDM Narrative Medical decision making narrative: Discussed physical exam findings. Antibiotic for strep throat. Advised supportive measures and signs/symptoms to go to the ER. Pt is appropriate for outpatient treatment and follow up. Differential Diagnosis Differential diagnosis: Likely upper respiratory infection, pharyngitis and other (strep throat, seasonal allergies) Lab Data Attestation: I reviewed the patient's lab results. Labs: Lab Results 11/14/24 Range/Units 08:12 POC Grp A Strep Screen Positive (Negative) Critical Care Time Critical Care Time Critical Care Time: No Discharge Plan Discharge Clinical Impression: Strep throat Patient Disposition: Home Condition: Stable Instructions: Antibiotic Form, Strep Throat (ED) Additional Instructions: Recommendations: Take antibiotic as prescribed. Flonase spray and Zyrtec for sinus congestion Tylenol every 8 hours as needed for pain/fever Soft foods, cool liquids, warm tea. Gargle with warm saltwater twice a day. Chloraseptic spray and throat lozenges. Rest and stay hydrated. --Follow up with your PCP --Go to the ER immediately if you cannot swallow your saliva, trouble breathing/wheezing, throat swelling, pain is persistent and severe Patient Language: Ukrainian Prescriptions: New amoxicillin 500 mg capsule 500 mg PO Q12H 10 Days Qty: 20 0RF No Action cabergoline 0.5 mg tablet Follow-up/Referrals: PHYSICIAN,GRAPHICS PRODUCTION SPECIALIST [Primary Care Provider] - Stand Alone Forms: Work/School Release IP Time of Disposition: 08:26
[2024-11-14 08:24] LABS: EDSTREPNEGPOS1 Positive (Negative)
== END 2024-11-14 08:34 | disposition home or self-care (01) ==
DX: J02.0 Streptococcal pharyngitis (principal)
CPT/HCPCS: 87880; 99213; G0463

== ENCOUNTER 2025-02-27 18:21 | Emergency (ER) | payer OTHER, SELFPAY ==
[2025-02-27 18:30] VITALS: BP 122/74; PULSE 71; RESP 18; TEMP 36.9; O2SAT 99
[2025-02-27 18:53] LABS: EDSTREPNEGPOS1 Negative (Negative)
--- NOTE | 2025-02-27 19:57 | ED.URI ---
HPI - URI/Sore Throat General Chief Complaint: Upper Respiratory Infection Stated Complaint: Sore Throat Time Seen by Provider: 02/27/25 18:45 Source: patient and RN notes reviewed Mode of arrival: ambulatory Limitations: no limitations History of Present Illness HPI Narrative: 24-year-old female presents to [facility] complaining of upper respiratory symptoms for 2 days. Patient reports congestion, runny nose, cough, sore throat. Patient denies any fevers, body aches, chills, nausea vomiting, diarrhea, chest pain, difficulty breathing, earache, or any other symptoms. Patient has not tried any [id number] help symptoms. Patient denies any significant past medical history. Related Data Allergies Allergy/AdvReac Type Severity Reaction Status Date / Time Sulfa (Sulfonamide Allergy Rash Verified 11/14/24 08:21 Antibiotics) Review of Systems Review of Systems: CONSTITUTIONAL: Denies fever, chills, body aches, or sweats. EYES: Denies visual changes, redness, or discharge. ENT: Positive for rhinorrhea, congestion, sore throat. Negative for otalgia. CARDIOVASCULAR: Denies chest pain, palpitations, or edema. RESPIRATORY: Positive for cough. Negative for dyspnea or wheezing. GASTROINTESTINAL: Denies abdominal pain, nausea, vomiting, or diarrhea. GENITOURINARY: Denies dysuria or hematuria. SKIN: Denies rash or itching. MUSCULOSKELETAL: Denies back pain, joint pain, or myalgia. NEUROLOGIC: Denies headache, numbness, or weakness. PSYCHIATRIC: Denies anxiety or depression. All other systems reviewed are negative, except as documented in HPI. [facility] Past Medical History Medical History Abscess delivery delivered Surgical History Surgical History H/O section X1-2019 Family History Family History Father Hypertension Mother Alive and well Social History Social History Smoking status: Never smoker Second hand tobacco smoke exposure: No Substance use: never Living arrangements: with family Occupation/Education: unemployed Gender identity (if verbalized by the patient): Female Sexual Orientation (if Verbalized by the Patient): Straight or Heterosexual Comments At the time of my signature, I reviewed and agree with the nursing past medical, surgical, social, and family history. There is no relevant family history pertinent to the patient complaint. Exam Narrative: GENERAL: This is a well-nourished, well-developed adult, in no apparent distress. They are non ill-appearing, nontoxic appearing. HEAD: normocephalic, atraumatic. EYES: Sclera clear/white. Vision is grossly intact. Conjunctiva normal bilaterally. Extraocular movements intact. EARS: External ears normal, auditory canals clear and without drainage, TMs without erythema or perforation. Hearing grossly intact. NOSE: External nose normal with no obvious nasal discharge, nasal turbinates erythematous, no rhinorrhea. THROAT: Mucous membranes moist, posterior pharynx erythematous without exudate. Uvula is midline. Postnasal drip present. NECK: Neck supple, non-tender without lymphadenopathy, masses or thyromegaly. CARDIOVASCULAR: Regular rate and rhythm without murmurs, gallops, or rubs. RESPIRATORY: Clear to auscultation. Breath sounds equal bilaterally. No wheezes, rales, or rhonchi. SKIN: warm, Dry, intact with no suspicious lesions or rash, good texture and turgor. NEURO: awake, alert, and oriented to person, place and time. There were no obvious focal neurologic abnormalities. EXTREMITIES: No joint tenderness, effusion, or edema noted. BACK: Nontender without deformity. Course Course Emergency Course: Portions of this record may have been created with voice recognition software Level of Care: Express Care Visit Vital Signs Vital signs: Vital Signs Temperature 98.4 F 02/27/25 18:30 Pulse Rate 71 02/27/25 18:30 Respiratory Rate 18 02/27/25 18:30 Blood Pressure 122/74 02/27/25 18:30 Pulse Oximetry 99 02/27/25 18:30 Oxygen Delivery Room Air 02/27/25 18:30 Temperature 98.4 F 02/27/25 18:30 Pulse Rate 71 02/27/25 18:30 Respiratory Rate 18 02/27/25 18:30 Blood Pressure 122/74 02/27/25 18:30 Pulse Oximetry 99 02/27/25 18:30 Oxygen Delivery Room Air 02/27/25 18:30 MDM - URI/Sore Throat MDM Narrative Medical decision making narrative: Rapid strep negative. A throat culture is pending. Patient likely has a viral upper respiratory infection. Discussed physical exam findings. Advised supportive measures and signs/symptoms to go to the ER. Pt is appropriate for outpt treatment and f/u. Differential Diagnosis Differential diagnosis: Likely upper respiratory infection, sinusitis, viral infection and pharyngitis Lab Data Attestation: I reviewed the patient's lab results. Labs: Lab Results 02/27/25 Range/Units 18:51 POC Grp A Strep Screen Negative (Negative) Discharge Plan Discharge Clinical Impression: Upper respiratory infection Qualifiers: URI type: unspecified viral URI Qualified Code(s): J06.9 - Acute upper respiratory infection, unspecified Patient Disposition: Home Condition: Stable Instructions: Antibiotic Form, Upper Respiratory Infection (ED) Additional Instructions: Your rapid strep swab was negative today at [facility]. You will be notified in a few days if the culture comes back positive for strep, and appropriate antibiotics will be called in for you at that time. Your symptoms are likely due to a viral illness, which is not treated with antibiotics. Viral symptoms can be present for up to 10-14 days. Take Tylenol or ibuprofen as needed for fever or pain. Follow instructions on the bottle. Rest and stay hydrated. Follow up with your PCP in 5-7 days if symptoms are not improving. Go to the ER immediately if you develop difficulty breathing or swallowing Patient Language: Hungarian Follow-up/Referrals: Catalina,Albertina Vieira MD [Primary Care Provider, Unknown] Time of Disposition: 19:04
== END 2025-02-27 19:09 | disposition home or self-care (01) ==
PROVIDERS: PCP Student in an Organized Health Care Education/Training Program
DX: J06.9 Acute upper respiratory infection, unspecified (principal)
CPT/HCPCS: 87081; 87880; 99213; G0463

== ENCOUNTER 2025-05-18 09:12 | Emergency (ER) | payer OTHER, SELFPAY ==
--- NOTE | 2025-05-18 09:17 | ED_ITS ---
HPI - URI/Sore Throat General Chief Complaint: Upper Respiratory Infection Stated Complaint: lt eye discharge, sorethroat Time Seen by Provider: 05/18/25 09:17 Source: patient Mode of arrival: ambulatory Limitations: no limitations History of Present Illness HPI Narrative: Patient is a 24-year-old female who presents with left eye drainage, redness and crusted shut this morning. Patient also had congestion, sore throat with cough for 3 days. Patient reports sore throat is worse in the morning. denies any fever, chills, nausea, vomiting, diarrhea. Patient has tried hot tea and honey Related Data Allergies Allergy/AdvReac Type Severity Reaction Status Date / Time Sulfa (Sulfonamide Allergy Rash Verified 05/18/25 09:21 Antibiotics) Review of Systems Review of Systems: All systems reviewed & are unremarkable except as noted in HPI and below Constitutional: Constitutional: Denies chills, Denies fatigue, Denies fever(s), Denies headache(s), Denies malaise and Denies weakness Eyes: Eyes: Denies blurry vision, Reports eye discharge, Reports irritation, Denies itchy eyes and Denies loss of vision ENT: Denies otalgia, Denies headache(s), Reports nasal congestion, Denies sinus pain and Reports sore throat Cardiovascular: Cardiovascular: Denies chest pain, Denies irregular heart rhythm and Denies dyspnea Respiratory: Respiratory: Reports cough and Denies dyspnea Gastrointestinal: Gastrointestinal: Denies abdominal pain, Denies diarrhea, Denies nausea and Denies vomiting Musculoskeletal: Musculoskeletal: Denies back pain, Denies myalgias and Denies arthralgias Integumentary/Breasts: Skin/Breast: Denies pruritus and Denies rash Neurologic: Denies headache(s), Denies loss of vision and Denies weakness Psychiatric: Psychiatric: Reports no additional psychiatric complaints Endocrine: Endocrine: Denies fatigue Allergic/Immunologic: Allergic/Immunologic: Denies itchy eyes PMFSH Past Medical History Medical History Abscess delivery delivered Surgical History Surgical History H/O section X1-2019 Family History Family History Father Hypertension Mother Alive and well Social History Social History Smoking status: Never smoker Second hand tobacco smoke exposure: No Substance use: never Living arrangements: with family Occupation/Education: unemployed Gender identity (if verbalized by the patient): Female Sexual Orientation (if Verbalized by the Patient): Straight or Heterosexual Comments At time of signature, agree with nursing past medical, surgical, social and family history. There is no relevant family history pertinent to the presenting complaint. Exam Const: General: cooperative, healthy appearing, comfortable, no acute distress and well nourished Nutritional Appearance: well nourished Orientation/consciousness: patient oriented x3 Limitations: no limitations HENMT: Head: normal to inspection, normocephalic and atraumatic Ears: hearing grossly normal bilaterally, external ears normal, TM's normal bilaterally, EAC's normal and no periauricular adenopathy Face/Nose/Sinus: Normal external nose present, Abnormal mucous membranes and turbinates present erythematous bilateral and diffuse, normal facial exam, sinuses nontender and face symmetric Face and sinus: normal facial exam, sinuses nontender and face symmetric Mouth: Yes Normal oral and palatal mucosa present, Yes lip normal, Yes tongue normal, Yes Normal salivary glands and ducts present, Yes oropharynx normal and Yes moist mucous membranes Teeth and gingiva: dentition normal Throat: tonsils normal, uvula midline, posterior oropharynx abnormal erythema and postnasal drainage Eyes: General: appearance normal, both eyes and all related structures Alignment and Position: alignment normal and position normal Periorbital: periorbital findings normal Eyelids: eyelids normal Conjunctivae: conjunctival abnormality left conjunctival injection diffuse and discharge mucoid Sclera: sclerae normal Pupils: Equal, round and reactive pupils present Neck: Neck: normal visual inspection, full ROM, no lymphadenopathy and supple Chest: Chest palpation & inspection: normal inspection of the chest and normal palpation of entire chest wall Resp: Effort & Inspection: normal respiratory effort and able to speak in complete sentences Auscultation: clear to auscultation bilaterally, no crackles, no rales, no rhonchi and no wheezes Cardio: Rate: tachycardic Rhythm: regular rhythm Heart sounds: S1 normal heart sound present and S2 normal heart sound present GI: Inspection: normal to inspection Skin: General skin exam: normal color and no rashes or lesions noted Neuro: General: patient oriented x3 and moves all extremities Cranial nerves: Yes Equal, round and reactive pupils present Speech: normal speech Gait exam (Neuro): Normal gait present Extrem: General: normal to inspection, full ROM and no edema Psych: Appearance: grossly normal and well kempt Mental Status: mental status grossly normal Speech and movement: Normal speech and movement present Affect: normal affect Attitude: cooperative Thought process: Normal thought process present Course Course Emergency Course: Discharge instructions reviewed with patient, as well as provided in writing per nursing staff. The instructions also include specific and strict return/GO TO THE ER as well as f/u information. All questions have been answered, and the patient deny any further questions with discharge and discharge plan. Portions of this record may have been created with voice recognition software Level of Care: Express Care Visit Vital Signs Vital signs: Vital Signs Temperature 36.9 C 05/18/25 09:24 Pulse Rate 114 H 05/18/25 09:24 Respiratory Rate 20 05/18/25 09:24 Blood Pressure 110/66 05/18/25 09:24 Pulse Oximetry 99 05/18/25 09:24 Oxygen Delivery Room Air 05/18/25 09:24 Temperature 36.9 C 05/18/25 09:24 Pulse Rate 114 H 05/18/25 09:24 Respiratory Rate 20 05/18/25 09:24 Blood Pressure 110/66 05/18/25 09:24 Pulse Oximetry 99 05/18/25 09:24 Oxygen Delivery Room Air 05/18/25 09:24 Reviewed MDM - URI/Sore Throat MDM Narrative Medical decision making narrative: Rapid strep negative. A throat culture is pending. Symptoms likely viral in etiology. Will treat for bacterial conjunctivitis Pt well hydrated appearing, in no respiratory distress, hemodynamically stable. Recommend supportive care. The patient is stable at time of discharge the clinical impression was discussed and the patient was given the opportunity to ask questions, which were addressed as completely as possible given the information available at present. Anticipatory guidance and return to care precautions were discussed and the importance of primary care follow-up was stressed and encouraged. The patient voiced understanding of the plan, indications to return, and the need for follow-up. Exam findings show no acute concerns or changes Patient is appropriate for outpatient treatment and follow-up. Differential diagnosis considered: Conjunctivitis,Lamas virus, strep pharyngitis, allergic rhinitis, upper respiratory tract infection, sinusitis, rhinosinusitis, nasopharyngitis. viral pharyngitis, otitis media, otitis externa, otitis effusion, foreign body, cerumen impaction, viral syndrome, and influenza.? Medical Records Attestation: I reviewed the patient's medical records. Lab Data Attestation: I reviewed the patient's lab results. Labs: Lab Results 05/18/25 Range/Units 09:32 POC Grp A Strep Screen Negative (Negative) Discharge Plan Discharge Clinical Impression: Upper respiratory infection Qualifiers: URI type: acute nasopharyngitis (common cold) Qualified Code(s): J00 - Acute nasopharyngitis [common cold] Conjunctivitis Qualifiers: Conjunctivitis type: acute Acute conjunctivitis type: bacterial Laterality: left Qualified Code(s): H10.32 - Unspecified acute conjunctivitis, left eye Patient Disposition: Home Condition: Stable Instructions: Upper Respiratory Infection (ED), Conjunctivitis (ED) Additional Instructions: Eye drops as prescribed. -Do this for 3 to 4 days until all redness and discharge has disappeared. -Cold compresses to the affected eye for comfort -May need warm compresses to remove debris in the morning -When cleaning the eyes used a washcloth/cotton ball in one direction then change washcloths/cotton ball before using it on another eye. -Do not share medicine--do not touch the eye with the medicine -Alternate or take Tylenol or ibuprofen as directed in the bottle for pain -Avoid screen time--television, computer, tablet or phone. -Practice good handwashing and hygiene to prevent spread of infection Follow-up with PCP or lithopone mill worker if condition is not improving in 2-3days. Go to the emergency room if you have pain behind your eye, pressure behind her eye, difficulty seeing, or other severe symptoms Your rapid strep swab was negative today at [facility]. A throat culture will be sent to the laboratory for further testing. If the test is positive, you will receive a phone call within 48 hours and an appropriate antibiotic will be initiated at that time. Your symptoms are likely due to a viral illness, which is not treated with antibiotics. Viral symptoms can be present for up to a few weeks. -For pain/fever, you may take: Tylenol 650-1000mg by mouth every 4-6 hours. Do not exceed 4000mg in 24 hours. Advil (Ibuprofen) 600 mg by mouth every 6 hours. Do not exceed 2400mg in 24 hours. 8 AM: Tylenol 11 AM: Ibuprofen 2 PM: Tylenol 5 PM: Ibuprofen 8 PM: Tylenol 11 PM: Ibuprofen 2 AM: Tylenol 5 AM: Ibuprofen -Antihistamine medication such as Benadryl/Zyrtec at night and Claritin/Sammi during the day can help improve symptoms. -Use Flonase twice a day for 5 days then daily to help reduce the inflammation and dry up your sinuses. -You can also use Sudafed behind the pharmacy counter(12 or 24 hour). Be sure to drink plenty of water with these medications at least 8 ounces with every dose and it is important to drink 8 to 10 glasses of water per day. Water is a natural decongestant -Eat and drink things that are easy to swallow, like tea or soup, or popsicles. -Oral rinses such as: Salt water gargles and/or may use topical anesthetic (eg. Chloraseptic spray) or lozenges to relieve dryness or throat pain). -Frequent hand washing or hand board finisher is one of the best ways to prevent spread of infection. -Using a vaporizer or humidifier at night will also help thin secretions and help with coughing up phlegm. Call your Primary Care Doctor and make a follow-up appointment in 3 days. If your cough worsens, you develop a fever greater than 103, you develop shaking chills, a fast heartbeat, trouble breathing and/or feel you are are breathing much faster than usual, call your Primary Care Doctor or go to the ER. Patient Language: French Prescriptions: New ofloxacin 0.3 % drops See Rx Instructions .ROUTE .COMPLEX Qty: 10 0RF Rx Instructions: put 1-2 drps into left eye every 2-4 h x 2 days, then 1-2 drps 4 times/day days 3-7 fluticasone propionate [Flonase Allergy Relief] 50 mcg/actuation spray,suspension 1 spray intranasal DAILY Qty: 16 0RF Rx Instructions: administer into each nostril loratadine 10 mg tablet 10 mg PO DAILY Qty: 30 0RF Follow-up/Referrals: Eliu Mcleod MD [Physician, Family Practice] - 3 Days Stand Alone Forms: Work/School Release IP Time of Disposition: 09:49
[2025-05-18 09:24] VITALS: BP 110/66; PULSE 114; RESP 20; TEMP 36.9; O2SAT 99
[2025-05-18 10:03] LABS: EDSTREPNEGPOS1 Negative (Negative)
== END 2025-05-18 09:57 | disposition home or self-care (01) ==
PROVIDERS: Emergency Provider Nurse Practitioner Family
DX: J06.9 Acute upper respiratory infection, unspecified (principal); H10.32 Unspecified acute conjunctivitis, left eye
CPT/HCPCS: 87081; 87880; 99213; G0463